=== PATIENT | male | born 1950 | race Caucasian/White ===

== ENCOUNTER → 2016-10-21 | Outpatient (CLI) | payer OTHER ==
--- NOTE | 2016-10-21 10:27 | KCIC ---
PROCEDURE CT scan of the chest without contrast 10/21/2016 HISTORY 45 to 50 year smoking history. Cough. TECHNIQUE Unenhanced contiguous, 5 millimeter axial sections were obtained through the chest and upper abdomen. One or more of the following individualized dose reduction techniques were utilized for this study: 1. Automated exposure control. 2. Adjustment of the mA and/or kV according to patient size. 3. Use of iterative reconstruction technique. FINDINGS Mild atherosclerotic plaque formation is seen involving the thoracic aorta. The thoracic aorta is minimally tortuous but tapers normally. The heart is borderline enlarged. Prominent likely reactive mediastinal lymph nodes are seen which measure 1 to 1.9 centimeters in size. Prominent likely reactive axillary lymph nodes are seen bilaterally. These measure 1 to 2 centimeters in size. No acute pulmonary infiltrate is seen. No pulmonary mass is noted. No pleural effusion or pneumothorax is seen. Small area of subsegmental atelectasis and/or scarring is seen involving the inferior lingula and right middle lobe. Two 3 millimeter nodular opacities are seen within the right middle lobe (image number 33 and image number 37). Their CT appearance is nonspecific. No additional pulmonary nodule is seen. Images through the upper abdomen are within normal limits. Degenerative changes are seen involving the thoracic spine. IMPRESSION Two 3 millimeter nodular opacities are seen involving the right middle lobe. A repeat CT scan of the chest in 12 months is recommended to document their stability. No acute abnormality is seen. Electronically signed by: Faraz Lind MD (Oct 21, 2016 10:25:48)
== END | disposition home or self-care (01) ==
LOC: KCIC CT 08:40
PROVIDERS: ATTEND Nurse Practitioner Family
DX: Z87.891 Personal history of nicotine dependence (principal); R05 Cough
CPT/HCPCS: 71250

== ENCOUNTER → 2017-10-22 | Outpatient (CLI) | payer OTHER | END | disposition home or self-care (01) | LOC: KCIC CT 09:50 | DX: Z12.2 Encounter for screening for malignant neoplasm of respiratory organs (principal); J43.9 Emphysema, unspecified; M47.894 Other spondylosis, thoracic region; F17.200 Nicotine dependence, unspecified, uncomplicated; E11.9 Type 2 diabetes mellitus without complications | CPT/HCPCS: 71250 ==

== ENCOUNTER → 2019-06-03 | Outpatient (CLI) | payer OTHER ==
[~2019-06-03] MED LIST: ASPI-612 PO; ATOR20TA PO; DOXY100C14 PO; LISI-338 PO; MELO15TA23 PO; METF500T11 PO; RIVA10TA PO; TICA90TA PO; freestyle libre TOP
--- NOTE | 2019-06-03 12:03 | KCIC ---
EXAM: CT Chest without IV contrast CLINICAL HISTORY: Lung nodule follow-up COMPARISON: 10/22/2017, 10/21/2016 TECHNIQUE: CT of the chest without intravenous contrast. Axial, coronal and sagittal reformatted images were generated. ---PQRS compliance statement - One or more of the following individualized dose reduction techniques were utilized for this study: 1. Automated exposure control 2. Adjustment of the mA and/or kV according to patient size 3. Use of iterative reconstruction technique--- FINDINGS: Lack of intravenous contrast limits evaluation of solid organs, vasculature, and lymph nodes. Chest: Heart is mildly enlarged. No pericardial effusion. No pleural effusion or pneumothorax. Within the constraints of this noncontrast exam, no mediastinal, hilar or axillary lymphadenopathy. A few mildly prominent axillary and mediastinal lymph nodes measure <1 cm short axis. Right thyroid nodule is stable. Central airways are grossly patent. 3 mm middle lobe lung nodule (series 6 image 109) is stable. 3 mm middle lobe lung nodule (series 6 image 124) is also stable. Mild background of emphysematous change. No pleural effusion or pneumothorax. Visualized Upper abdomen: High density material dependently within the gallbladder likely sludge. Moderate colonic stool content is seen. Bones: Osseous structures are grossly unremarkable. IMPRESSION: 1. Middle lobe lung nodules measure approximately 3 mm, stable to at least October 21, 2016. Given two-year stability, no further follow-up of these lung nodules is indicated. 2. Thyroid nodules are again seen, stable. 3. Mild background of emphysematous change. Electronically signed by: Feliberto Nettles MD (06/03/2019 12:00 PM) [facility]
== END | disposition home or self-care (01) ==
LOC: KCIC CT 09:30
PROVIDERS: ATTEND Nurse Practitioner Family
DX: E04.2 Nontoxic multinodular goiter (principal); J43.9 Emphysema, unspecified; R91.8 Other nonspecific abnormal finding of lung field
CPT/HCPCS: 71250

== ENCOUNTER → 2019-06-03 | Outpatient (CLI) | payer OTHER ==
--- NOTE | 2019-06-03 15:08 | KCIC ---
STUDY: MRI of the right foot without contrast INDICATION: Ulcer. Concern for infection at the first MTP joint. COMPARISON: None. TECHNIQUE: Multiplanar MR imaging of the right foot performed without the use of intravenous contrast. FINDINGS: Bones: Hallux valgus configuration. Advanced degenerative changes at the great toe MTP joint to include the medial hallux sesamoid with subchondral cystic change with surrounding marrow edema. Also noted are some marginal erosions along the medial aspect of the first metatarsal head. Less pronounced degenerative changes at the second MTP joint. First TMT arthrosis as well as partially visualized arthrosis at the naviculocuneiform joint with prominent cystic change at the central to medial aspect of the navicular, image 11 series 5. No acute fracture. Scattered flexion deformities of the toes. Musculotendinous: No acute tendinous injury. Musculature bulk and signal is relatively normal. Ligaments: No findings of acute injury to the great toe or lesser MTP capsuloligamentous structures. The Lisfranc ligament complex appears intact. Miscellaneous: There is a superficial wound located along the medial aspect of the first metatarsal head without subjacent fluid collection or visualized sinus tract. Nonspecific soft tissue edema-like signal most notable along the dorsum of the foot at the level of the MTP joints as well as extending along the great toe proximal phalanx. IMPRESSION: 1. Apparent shallow ulceration located medial to the first metatarsal head. No subjacent fluid collection or sinus tract is well seen. 2. Advanced arthrosis at the great toe MTP joint in the setting of hallux valgus alignment. Cystic changes involving the metatarsal head as well as the medial sesamoid with surrounding edema however there is no confluent T1 signal loss in this region to suggest superimposed osteomyelitis. Some marginal erosions at the medial first metatarsal head may be degenerative or could represent superimposed gout. 3. Scattered degenerative changes elsewhere such as at the first TMT, naviculocuneiform and second MTP joints. Electronically signed by: AIDE SHANKS MD (06/03/2019 3:05 PM) [facility]
== END | disposition home or self-care (01) ==
LOC: KCIC MRI 09:17
PROVIDERS: ATTEND Nurse Practitioner Family
DX: E11.621 Type 2 diabetes mellitus with foot ulcer (principal); L97.516 Non-pressure chronic ulcer of other part of right foot with bone involvement without evidence of necrosis; M19.071 Primary osteoarthritis, right ankle and foot; M20.11 Hallux valgus (acquired), right foot; M85.871 Other specified disorders of bone density and structure, right ankle and foot
CPT/HCPCS: 73718

== ENCOUNTER → 2019-06-08 | Outpatient (CLI) | payer OTHER | END | disposition home or self-care (01) | LOC: SPEC 17:19 | PROVIDERS: ATTEND Podiatrist | DX: E11.621 Type 2 diabetes mellitus with foot ulcer (principal); E11.51 Type 2 diabetes mellitus with diabetic peripheral angiopathy without gangrene; E11.40 Type 2 diabetes mellitus with diabetic neuropathy, unspecified; M79.671 Pain in right foot; Z79.899 Other long term (current) drug therapy | CPT/HCPCS: 87071; 87075 ==

== ENCOUNTER 2019-07-04 08:36 | Observation (INO) | payer OTHER ==
[~2019-07-04] VITALS: Ht 167.6 cm; Wt 79.2 kg
[2019-07-04] VITALS (11 sets, daily range): BP systolic 105–147; BP diastolic 59–96
[~2019-07-04 08:36] MED LIST changes: -ASPI-612 PO; -ATOR20TA PO; -DOXY100C14 PO; +HEPARIN for ARTERIAL LINE 1,500 ML ONE; +IODIXANOL 320 MG/ML 100 ML VIAL. ONE; +LIDOCAINE 1% Multi-Dose 20 ML VIAL. ONE; -LISI-338 PO; -MELO15TA23 PO; -METF500T11 PO; -RIVA10TA PO; -TICA90TA PO; -freestyle libre TOP
[2019-07-04] MEDS ORDERED: MIDAZOLAM HCL/PF 2 MG/2 ML VIAL. ONE ×2 (08:47→11:20)
[2019-07-04] MEDS ORDERED: fentaNYL PF VIAL 100 MCG/2 ML VIAL ONE ×2 (08:47→11:20)
[2019-07-04] MEDS ORDERED: LISI-338 PO (08:50)
[2019-07-04] MEDS ORDERED: MELO15TA23 PO (08:50)
[2019-07-04] MEDS ORDERED: DOXY100C14 PO (08:50)
[2019-07-04] MEDS ORDERED: METF500T11 PO ×2 (08:50)
[2019-07-04] MEDS ORDERED: ATOR20TA PO (08:50)
[2019-07-04] MEDS ORDERED: freestyle libre TOP (08:50)
[2019-07-04 09:16] LABS: HEMOGLOBIN 15.8 g/dL (13.0-17.5); RED BLOOD COUNT 5.16 x10^6/uL (4.30-5.70); RED CELL DISTRIBUTION WIDTH 14.3 % (11.5-14.5); WHITE BLOOD COUNT 10.1 x10^3/uL (4.0-11.0)
[2019-07-04 09:22] LABS: CALCIUM 11.2 mg/dL (8.5-10.1); CREATININE 0.7 mg/dL (0.7-1.3); GFR 111.5; POTASSIUM 4.6 mmol/L (3.5-5.1)
[2019-07-04 09:26] LABS: PROTHROMBIN TIME PATIENT 11.8 SEC (11.7-14.0)
[2019-07-04] MEDS ORDERED: MIDAZOLAM HCL/PF 2 MG/2 ML VIAL. IV ONE (11:00)
[2019-07-04] MEDS ORDERED: fentaNYL PF VIAL 100 MCG/2 ML VIAL IV ONE (11:00)
[2019-07-04] MEDS ORDERED: LIDOCAINE 1% Multi-Dose 20 ML VIAL. INJ ONE (11:00)
[2019-07-04] MEDS ORDERED: IODIXANOL 320 MG/ML 100 ML VIAL. IART ONE (11:00)
[2019-07-04] MEDS ORDERED: HEPARIN for IV BOLUS 10,000 UNIT/10 ML VIAL. ONE ×2 (11:05→13:22)
[2019-07-04] MEDS ORDERED: HEPARIN for IV BOLUS 10,000 UNIT/10 ML VIAL. IV ONE (11:15)
[2019-07-04] MEDS ORDERED: VERAPAMIL 5 MG/2 ML VIAL. ONE (11:20)
[2019-07-04] MEDS ORDERED: NITROGLYCERIN 200 MCG/2 ML SYRINGE FOR CATH/VASC LAB. ONE ×2 (11:20→15:00)
[2019-07-04] MEDS ORDERED: HEPARIN for IV BOLUS 10,000 UNIT/10 ML VIAL. IART ONE (11:30)
[2019-07-04] MEDS ORDERED: VERAPAMIL 5 MG/2 ML VIAL. IART ONE (11:30)
[2019-07-04] MEDS ORDERED: NITROGLYCERIN 200 MCG/2 ML SYRINGE FOR CATH/VASC LAB. IART ONE ×2 (11:30→14:15)
[2019-07-04] MEDS ORDERED: IV NORMAL SALINE 500ML BAG 500 ML IV ONE (12:00)
[2019-07-04] MEDS ORDERED: IODIXANOL 320 MG/ML 100 ML VIAL. ONE (13:40)
[2019-07-04] MEDS ORDERED: VANCOMYCIN 1GM IVPB FOR OMNI 250 ML IV ONE ×2 (13:45→14:15)
[2019-07-04] MEDS ORDERED: VANCOMYCIN 1 GM in IV NORMAL SALINE 250ML 250 ML IV ONE (14:15)
[2019-07-04] MEDS ORDERED: VANCOMYCIN 1GM IVPB FOR OMNI 250 ML ONE (14:15)
[2019-07-04] MEDS ORDERED: TICAGRELOR 90 MG TABLET. PO ONE (14:30)
[2019-07-04] MEDS ORDERED: ASPIRIN 325 MG TABLET PO ONE (14:30)
[2019-07-04] MEDS ORDERED: ASPIRIN 325 MG TABLET ONE (14:33)
[2019-07-04] MEDS ORDERED: TICAGRELOR 90 MG TABLET. ONE (14:33)
[2019-07-04] MEDS: INSULIN LISPRO 300 UNITS/3 ML VIAL. SQ SCH (17:00)
[2019-07-04] MEDS ORDERED: IV DEXTROSE 5% 250 ML BAG. IV PRN (17:00)
[2019-07-04] MEDS ORDERED: DEXTROSE 50% 25 GM / 50ML DISP.SYRIN. IV PRN (17:00)
[2019-07-04] MEDS: LISINOPRIL 5 MG TABLET. PO SCH (17:26)
--- NOTE | 2019-07-04 18:07 | CARD ---
MR#: [id number] Date of Study: 07/04/2019 Ordering Physician: NIKITA MANE, Referring Physician: NIKITA MANE, Tech: Radha Mendez RT (R) APPROVED REPORT Patient StatusIN-PATIENT Show Card Letterer: Radha Mendez RT (R) Procedure(s) performed: MODERATE SEDATION 205 MINUTES CONTRAST 208 CC'S VISIPAQUE FLUORO TIME 53.7 MINUTES DOSE 418.21 Gycm2 Abdominal aortogram with bilateral ileofemoral run-off Complex PVI and stenting of the R SFA via combined antegrade and retrograde approaches. HISTORY The patient is a 68 year-old male with a history of : tobacco history() , hypertension, dyslipidemia. INDICATION FOR PROCEDURE The indication(s) include : Rest pain: Right lower extremity. PROCEDURE NARRATIVE After appropriate informed consent, the patient was brought to the soap slabber and placed in the supine position. Preprocedural timeout was completed and confirmed the right patient and procedure. The bila teral groins were prepped and draped in usual sterile fashion. Moderate sedation acheived with Fentan yl and Versed. The patient received Heparin for anticoagulation. Access: Under lidocaine local anesthesia, a 5Fr introducer sheath was placed in the LCFA via the shawn fied seldinger technique with a J-tipped guidewire and an 18g needle. Diagnostic angiography was then performed using a 5Fr Omniflush catheter with digital subtraction angiography. Next, the contralater al (RCFA) was accessed with the aid of the crossover catheter and a J-tipped guidewire. The crossover was then exchanged for a long angled glide catheter which was then placed in the RCFA. Repeat right lower extremity with DSA was performed. 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 RENAL arteries: Single right and left renal arteries were identified without significant disease. RCIA: No significant disease. REIA: Mild to moderate 40-50% stenosis. RIIA: Ostial/proximal 50% stenosis. RCFA: No significant disease. RSFA: There is a flush ostial occlusion. The vessel reconstitutes at the level of the adductor canal and has a 70% stenosis. RPOP: No significant disease. RTP trunk: No significant disease. RAT: Mild diffuse irregularities. RPER: Moderate diffuse disease. RPT: No significant disease. LCIA: Mild diffuse irregularities of upto 20%. JAN: No significant disease. LIIA: Has an ostial/proximal 50% stenosis. LCFA: No significant disease. LSFA: No significant disease. LPOP: No significant disease. LAT: No significant disease. LTP trunk: No significant disease. INTERVENTIONAL TECHNIQUE: PVI OF THE RSFA The case was discussed with the wound care service (Dr. Lizama). After discussion, it was felt that significant healing issues were persistent and therefore decision was made to recanalize the SFA PASTING MACHINE OFFBEARER despite robust collateral flow from the profunda. Heparin was used for anticoagulation. The left-sided 5 Norwegian sheath was exchanged for a 6 Norwegian [employer] k sheath and this was placed in the right common femoral artery. Subsequently via ultrasound guidance a 5/6 Norwegian slender sheath was placed in the right anterior tibial artery. Due to the flush ostial occlusion of the SFA and lack of any clear evidence of a stump decision was made to pursue a retrogra de approach via the pedal access. There was significant difficulty and complexity to the procedure du e to heavy calcification at the proximal and distal. A 0.018'' Connect 250 T and 0.018 inch Glidewire advantage was used to traverse the distal cap most of the body of the occluded segment. Subsequent o nly, the proximal Was crossed in a subintimal fashion and despite multiple manipulations and wires us ing a 0.035 inch Glidewire, 0.018 inch Glidewire advantage and a command ST and 250 T wires, the prox imal At the level of the right common femoral artery was unable to be crossed any true lumen fashion. A 3.0 x 20 mm balloon was used to angioplasty from a retrograde fashion. Ultimately, a Navicross cat heter and an Astato 20 wire were used to pucture the proximal cap. True lumen placement was confirmed . Subsequent only, the right SFA occlusion was angioplastied with a 3.0 x 200 mm balloon, a 5.0 x 200 mm balloon and a 5.5 x 80 mm balloon at nominal pressures. Angiography demonstrated excellent runoff to the foot with persistent dissection at the level of the ostium of the SFA. The decision was then made to place a 5.5 x 60 mm Supera self expanding stent in the ostium of the SFA and proximal SFA. An giography demonstrated excellent stent expansion without any evidence of compromise of flow to the pr ofunda. The stent was then postdilated with the 5.5 mm balloon at 10 cely. Final angiography revealed excellent distal runoff without any evidence of residual dissection. At case completion, the left sided sheath was removed and an angioseal was used for hemostasis. The r ight pedal sheath was removed and a terumo band was applied for hemostasis. No acute complications. Conclusion 1. Gary category 5 lower extremity peripheral arterial disease 2. Successful complex PASTING MACHINE OFFBEARER recanalization and stenting of the right SFA via antegrade and retrograde a pproaches Recommendations 1. Aspirin 81 mg daily, ticagrelor 90 mg twice a day and Xarelto 2.5 mg daily for 30 days and then tr ansition to ASA 81 mg daily 2. Continue aggressive wound care management 3. Repeat duplex ultrasound in for 6 weeks Signed by : Nikita Mane, Electronically Approved : 07/04/2019 18:07:09
[2019-07-04] MEDS: TICAGRELOR 90 MG TABLET. PO SCH (20:33)
[2019-07-04] MEDS: DOXYCYCLINE HYCLATE 100 MG TABLET PO SCH (20:33)
[2019-07-04] MEDS ORDERED: ATORVASTATIN CALCIUM 20 MG TABLET PO SCH (21:00)
[2019-07-04] MEDS ORDERED: [UNRECOGNIZED DRUG - OTHER] TOP SCH (21:00)
[2019-07-05 03:15] VITALS: BP 116/62
[2019-07-05 07:00] VITALS: BP 136/77
[2019-07-05] MEDS: INSULIN LISPRO 300 UNITS/3 ML VIAL. SQ SCH (08:00)
[2019-07-05] MEDS ORDERED: MELOXICAM 7.5 MG TABLET PO SCH (09:00)
[2019-07-05] MEDS: TICAGRELOR 90 MG TABLET. PO SCH (09:16)
[2019-07-05] MEDS: LISINOPRIL 5 MG TABLET. PO SCH (09:16)
[2019-07-05] MEDS: DOXYCYCLINE HYCLATE 100 MG TABLET PO SCH (09:19)
[2019-07-05] MEDS ORDERED: ASPIRIN ENTERIC COATED 81 MG TABLET.DR. PO SCH (10:45)
[2019-07-05 11:00] VITALS: BP 151/72
--- NOTE | 2019-07-05 11:24 | NUR ---
SS following for discharge planning. SS reviewed pt chart. Pt is from home with spouse and is currently on room air. No discharge needs noted at this time. SS will continue to follow for discharge planning.
[2019-07-05] MEDS ORDERED: RIVA10TA PO (12:38)
[2019-07-05] MEDS ORDERED: TICA90TA PO (12:38)
[2019-07-05] MEDS ORDERED: ASPI-612 PO (12:39)
--- NOTE | 2019-07-05 12:42 | PDOC3 ---
ASHLEIGH ORTEGA MOBILE APPLICATION DEVELOPER 07/05/19 1242: Discharge Summary Visit Information Date of Admission: Jul 04, 2019 Date of Discharge: Jul 05, 2019 Admitting Diagnosis: Severe RLE PAD, nonhealing right foot ulcer, DM2 Final Diagnosis Severe RLE PAD, nonhealing right foot ulcer, DM2 Brief Hospital Course Allergies Allergies Coded Allergies Type Severity Reaction Last Updated Verified No Known Drug Allergies 07/04/19 No Vital Signs Vital Signs Date Time Temp Pulse Resp B/P (MAP) Pulse Ox O2 Delivery O2 Flow Rate FiO2 07/05/19 11:00 97.9 79 16 151/72 (98) 98 Room Air 97.9 07/04/19 20:00 2.0 Lab Results Laboratory Tests Test 07/04/19 08:56 07/04/19 11:44 07/04/19 12:24 07/04/19 13:03 White Blood Count 10.1 x10^3/uL (4.0-11.0) Red Blood Count 5.16 x10^6/uL (4.30-5.70) Hemoglobin 15.8 g/dL (13.0-17.5) Hematocrit 46.0 % (39.0-53.0) Mean Corpuscular Volume 89 fL (79-100) Mean Corpuscular Hemoglobin 31 pg (25-35) Mean Corpuscular Hemoglobin Concent 34 g/dL (31-37) Red Cell Distribution Width 14.3 % (11.5-14.5) Platelet Count 213 x10^3/uL (140-400) Prothrombin Time 11.8 SEC (11.7-14.0) Prothromb Time International Ratio 0.9 (0.8-1.1) Sodium Level 136 mmol/L (136-145) Potassium Level 4.6 mmol/L (3.5-5.1) Chloride Level 99 mmol/L (98-107) Carbon Dioxide Level 28 mmol/L (21-32) Anion Gap 9 (6-14) Blood Urea Nitrogen 12 mg/dL (8-26) Creatinine 0.7 mg/dL (0.7-1.3) Estimated GFR (Cockcroft-Gault) 111.5 Glucose Level 136 mg/dL (70-99) Calcium Level 11.2 mg/dL (8.5-10.1) Activated Clotting Time 267 sec (92-181) 231 sec (92-181) 215 sec (92-181) Test 07/04/19 13:57 Activated Clotting Time 235 sec (92-181) Laboratory Tests Test 07/04/19 13:03 07/04/19 13:57 Activated Clotting Time 215 sec (92-181) 235 sec (92-181) Brief Hospital Course Mr Damon is a 68 yo male admitted for planned abdominal aortogram with bilateral ileofemoral run-off due to claudication symptoms and nonhealing ulcer to right first metatarsal region on the medial side. Upon imaging and he was noted with severe RLE PAD with roshni category 5. Successful complex MEDICAL SPECIALIST recanalization and stenting of the R SFA via combined antegrade and retrograde approaches were performed. Left groin arteriotomy site intact with no erythema or swelling. Right pedal arteriotomy site intact with no swelling or erythema. Neurovascular status to RLE intact. Right medial first metatarsal ulcer was noted with no eschar or significant purulence and cellulitis was noted. This was covered with dressing. Continue outpt wound care and podiatry treatment with continued use of post op shoe. VSS, AOx3, LSCTA, no arrhythmias overnight. Discussed smoking cessation and increasing exercise regimen. He is to start aspirin 81 mg daily, ticagrelor 90 mg twice a day and Xarelto 2.5 mg daily for 30 days (Rx given) and then transition to ASA 81 mg daily. Repeat duplex ul trasound in for 6 weeks. Follow up in office as scheduled. Continue with preop home regimen including DM regimen with metformin to restart tomorrow. Post procedural home instructions discussed. Discharge Information Condition at Discharge: Stable Follow Up: Weeks (8) Disposition/Orders: D/C to Home Scheduled Aspirin (Aspirin Ec) 81 Mg Tablet.dr, 1 TAB PO DAILY for PAD for 30 Days, #30 Ref 3 Prescribed by: ASHLEIGH ORTEGA on 07/05/19 1239 Atorvastatin Calcium (Lipitor) 20 Mg Tablet, 20 MG PO HS for FOR CHOLESTEROL, #30 Ref 0 (Reported) Entered as Reported by: LITA MENSAH on 07/04/19 0850 Last Action: Continued on 07/04/19 1614 by CLAUDY MORA Doxycycline Monohydrate (Doxycycline Monohydrate) 100 Mg Capsule, 1 CAP PO BID for rx, #28 (Reported) Entered as Reported by: LITA MENSAH on 07/04/19849 Last Action: Converted on 07/04/191613 by CLAUDY MORA Lisinopril (Lisinopril) 5 Mg Tablet, 1 TAB PO DAILY for rx, #30 Ref 5 (Reported) Entered as Reported by: LITA MENSAH on 07/04/19849 Last Action: Continued on 07/04/191613 by CLAUDY MORA Metformin Hcl (Metformin Hcl Er) 500 Mg Tab.er.24h, 1,000 MG PO DAILYWBKFT for ANTI-DIABETIC, Ref 0 (Reported) Entered as Reported by: LITA MENSAH on 07/04/19849 Last Action: New Order on 07/04/19849 by LITA MENSAH Metformin Hcl (Metformin Hcl Er) 500 Mg Tab.er.24h, 500 MG PO DAILYBFRSUP for rx, (Reported) Entered as Reported by: LITA MENSAH on 07/04/19849 Last Action: New Order on 07/04/19849 by LITA MENSAH Rivaroxaban (Xarelto) 10 Mg Tablet, 2.5 MG PO DAILYWSUP for PAD for 30 Days, #8 Prescribed by: ASHLEIGH ORTEGA on 07/05/19 1238 Ticagrelor (Brilinta) 90 Mg Tablet, 90 MG PO BID for PAD for 30 Days, #60 Prescribed by: ASHLEIGH ORTEGA on 07/05/19 1238 [freestyle esequiel] , 1 EA TOP BID, (Reported) Entered as Reported by: LITA MENSAH on 07/04/19849 Last Action: Converted on 07/04/191613 by CLAUDY MORA Discontinued Medications Meloxicam (Meloxicam) 15 Mg Tablet, 1 TAB PO DAILY for rx, #30 Ref 2 (Reported) Entered as Reported by: LITA MENSAH on 07/04/19849 Last Action: Converted on 07/04/191613 by CLAUDY MORA Patient Instructions Patient Instructions GENERAL INSTRUCTIONS: 1. Your dressing should be removed prior to leaving the hospital. 2. It is OK to shower the day after your procedure. 3. If you received stents, be sure to carry your stent information card with you in your wallet/purse at all times. 4. Call the office immediately at [phone] if you notice any fever or if there is redness, worsening tenderness/pain, increased bruising, or drainage from the puncture site. 5. Should you have bleeding from the site, lie down immediately & put pressure on the site. The pressure should be hard enough to stop the bleeding. Have the nearest person call 911. DO NOT try to drive to the ER with ac tive bleeding. 6. If you notice a change in color, coolness to touch, or loss of feeling in the affected extremity, come to the emergency room. Please have someone drive you or call 911 if no one is available. DO NOT drive yourself. 7. If you normally take glucophage (metformin), please do not take this medicine for 48 hours following your procedure. 8. DO NOT STOP TAKING YOUR PLAVIX OR ASPIRIN UNLESS IT IS CLEARED BY A DOLLY DRIVER OF YOUR BUILDING INSULATION INSTALLER AT OUR OFFICE. 9. QUIT SMOKING: the [place] [employer], [place] [employer], & [employer] have cessation resources available on their websites 10. Please have someone available to drive you home from the hospital as you may be limited by sedation medications given during the procedure. Femoral (Groin) access: 1. Do no lifting, pushing, pulling, bending, stooping, or recurrent stair climbing for 3 days following your procedure. 2. Once past the first 3 days, do not do any HEAVY exertion or lifting for one week following the procedure. No gym workouts, running, lifting greater than a gallon of milk, etc 3. Do not submerge in bath or pool for one week. OK to drive 3 days following your procedure, but if going long distance, do not go alone & take hourly breaks to get out of car and walk around. Call the office at [phone] for any questions or concerns. NIKITA MANE MD 07/06/19 1153: Discharge Summary Brief Hospital Course Brief Hospital Course Pt. seen and examined. Agree with above MACHINE OPERATOR HAY STACKER note. Late entry for 07/05/2019 Will f/u in the office in 3-4 months. Repeat duplex in 4-6 weeks. Thanks Discussed with wound care ASHLEIGH ORTEGA APRN Jul 05, 2019 12:42 NIKITA MANE MD Jul 06, 2019 11:53
--- NOTE | 2019-07-05 13:45 | NUR ---
Discharge Note: KIMI CARR Discharge instructions and discharge home medications reviewed with Patient and a copy given. All questions have been answered and understanding verbalized.
--- NOTE | 2019-07-05 14:20 | NUR ---
Wound Care Attempted to see pt for wound care consult, known to WC from outpt wound clinic. Pt has already been discharged, will f/u with pt in clinic.
[2019-07-05] MEDS ORDERED: RIVAROXABAN 10 MG TABLET. PO SCH (17:00)
[2019-07-05] MEDS ORDERED: LACTOBACILLUS RHAMNOSUS GG 1 CAPSULE. PO SCH (21:00)
== END 2019-07-05 13:45 | disposition home or self-care (01) ==
LOC: CCL 08:36 → INTOOBSV 12:21 → 2 NORTH 12:21
PROVIDERS: ADMIT Internal Medicine Cardiovascular Disease; ATTEND Internal Medicine Cardiovascular Disease
DX: E11.51 Type 2 diabetes mellitus with diabetic peripheral angiopathy without gangrene (principal); E11.621 Type 2 diabetes mellitus with foot ulcer; F17.200 Nicotine dependence, unspecified, uncomplicated; L97.519 Non-pressure chronic ulcer of other part of right foot with unspecified severity; Z79.01 Long term (current) use of anticoagulants; Z79.02 Long term (current) use of antithrombotics/antiplatelets; Z79.82 Long term (current) use of aspirin
CPT/HCPCS: 36415; 37226; 75625; 75716; 76937; 80048; 85027; 85347; 85610; 96365; 96375; C1760; C1769; C1892; C1894; G0378; G0379; J1644; J1815; J2250; J3010; J3370; J3490; J7040; J7050; Q9967; 99152; 99153; C1771; J7030

== ENCOUNTER 2019-09-06 12:24 | Inpatient (IN) | payer OTHER, MEDICARE ==
[~2019-09-06] VITALS: Ht 167.6 cm; Wt 80.4 kg
[~2019-09-06 12:24] MED LIST changes: +ASPI-612 PO; +ATOR20TA PO; +DOXY100C14 PO; -HEPARIN for ARTERIAL LINE 1,500 ML ONE; -IODIXANOL 320 MG/ML 100 ML VIAL. ONE; -LIDOCAINE 1% Multi-Dose 20 ML VIAL. ONE; +LISI-338 PO; +MELO15TA23 PO; +METF500T11 PO; +RIVA10TA PO; +TICA90TA PO; +freestyle libre TOP
[2019-09-06 13:30] VITALS: BP 132/71
[2019-09-06] MEDS: LISINOPRIL 5 MG TABLET. PO SCH (13:56)
[2019-09-06] MEDS ORDERED: ASPIRIN ENTERIC COATED 81 MG TABLET.DR. PO SCH (14:00)
--- NOTE | 2019-09-06 14:37 | HP ---
ADMIT DATE: 09/06/2019 CHIEF COMPLAINT: Right diabetic foot lesion. 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 He developed a right bunion toe infection. At the greater toe, he states he got bit by some mosquito that was there and that seemed to start the infection. He presented to [facility] today. They called me and explained the patient's wounds are just getting too bad, seems to be progressing. He does have associated pain. We are going to admit the patient and consult Infectious Disease and Vascular Surgery. The patient is being examined on the medical floor, room #444. PAST MEDICAL HISTORY: Diabetes, hypertension, hyperlipidemia, and diabetic foot disease. ALLERGIES: None. FAMILY HISTORY: Hypertension and diabetes. 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 He is . He does not drink, smoke or take drugs. MEDICATIONS: Reviewed, please refer to the MRAD. He is on lisinopril. He was on nystatin. REVIEW OF SYSTEMS: GENERAL: No history of weight change, weakness or fevers. SKIN: No bruising, hair changes or rashes. EYES: No blurred, double or loss of vision. NOSE AND THROAT: No history of nosebleeds, hoarseness or sore throat. HEART: No history of palpitations, chest pain or shortness of breath on exertion. LUNGS: Denies cough, hemoptysis, wheezing or shortness of breath. GASTROINTESTINAL: Denies changes in appetite, nausea, vomiting, diarrhea or constipation. GENITOURINARY: No history of frequency, urgency, hesitancy or nocturia. NEUROLOGIC: Denies history of numbness, tingling, tremor or weakness. PSYCHIATRIC: No history of panic, anxiety or depression. ENDOCRINE: No history of heat or cold intolerance, polyuria or polydipsia. EXTREMITIES: He complains of right toe pain. PHYSICAL EXAMINATION: VITALS: Within normal limits and are stable. GENERAL: No apparent distress. Alert and oriented. HEENT: Head is normocephalic, atraumatic, pupils were equally round and reactive to light and accommodation. NECK: Supple, no JVD, no thyromegaly was noted. LUNGS: Clear to auscultation in all lung sandoval without rhonchi or wheezing. HEART: RRR, S1, S2 present. Peripheral pulses intact, no obvious murmurs were noted. ABDOMEN: Soft, nontender. Positive bowel sounds no organomegaly, normal bowel sounds. EXTREMITIES: The right toe has a large diabetic foot ulcer, right at the head of the first metatarsal. NEUROLOGIC: Normal speech, normal tone. A & O x3, moves all extremities, no obvious focal deficits. PSYCHIATRIC: Normal affect, normal mood. Stable. SKIN: No ulcerations or rashes, good skin turgor, no jaundice. VASCULAR: Good capillary refill, neurovascular bundle appears to be intact. LABORATORY DATA: Pending. ASSESSMENT AND PLAN: Diabetic foot ulcer. The patient has been admitted. We will consult Vascular Surgery, consult Infectious Disease. I ordered IV vancomycin, IV Zosyn. Resume home meds, frequent labs, physical therapy, occupational therapy, deep venous thrombosis prophylaxis. Full code. UZMA MCKEON DO DR: RAIMUNDO/jory JOB#: [id number] / [id number]
[2019-09-06 15:00] VITALS: BP 139/80
[2019-09-06] MEDS ORDERED: PIPERACILLIN/TAZOBACTAM 4.5 GM in IV NORMAL SALINE 100ML 100 ML IV ONE (15:15)
[2019-09-06] MEDS ORDERED: PIP/TAZO PER PHARMACY MC PRN (15:15)
[2019-09-06] MEDS ORDERED: VANCOMYCIN 2 GM in IV NORMAL SALINE 500ML BAG 500 ML IV ONE (15:45)
[2019-09-06 16:10] LABS: BASO # 0.1 x10^3/uL (0.0-0.2); BASO % 1 % (0-3); EOS # 0.1 x10^3/uL (0.0-0.7); EOS % 1 % (0-3); LYMPH # 1.6 x10^3/uL (1.0-4.8); LYMPH % 12 % (24-48); MEAN CORPUSCULAR HEMOGLOBIN 31 pg (25-35); MEAN CORPUSCULAR HGB CONC 34 g/dL (31-37); MEAN CORPUSCULAR VOLUME 90 fL (79-100); MONO # 1.4 x10^3/uL (0.0-1.1); MONO % 11 % (0-9); NEUT # 9.9 x10^3/uL (1.8-7.7); NEUT % 76 % (31-73); PLATELET COUNT 275 x10^3/uL (140-400); RED BLOOD COUNT 4.21 x10^6/uL (4.30-5.70); RED CELL DISTRIBUTION WIDTH 13.6 % (11.5-14.5)
--- NOTE | 2019-09-06 16:22 | PDOC2 ---
CONSULT Date of Consult Date of Consult DATE: 09/06/19 TIME: 16:16 Reason for Consult Reason for Consult: Mal perforans ulcer of the right first toe History of Present Illness Reason for Visit: This a very pleasant 68-year-old diabetic male who has been treating a right diabetic mal perforans ulcer of the medial first metatarsal for over 5 months. He did undergo revascularization of the right lower extremity with christianity of blood flow. Despite this, the toe has not gone on to heal. 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 He states that his diabetes is generally very well controlled with his last hemoglobin A1c less than 7. Past Medical History Cardiovascular: CAD, HTN Endocrine: Diabetes Family History Family History: Hypertension Social History No Drugs: None Current Medications Current Medications Current Medications Aspirin (Ecotrin) 81 mg DAILY08 PO ; Start 09/06/19 at 14:00 Lisinopril (Prinivil) 5 mg DAILY PO ; Start 09/06/19 at 14:00 Metformin HCl (Glucophage Xr) 1,000 mg DAILYWBKFT PO ; Start 09/07/19 at 08:00 Metformin HCl (Glucophage Xr) 500 mg DAILY16 PO ; Start 09/06/19 at 16:00 Piperacillin Sod/ Tazobactam Sod 4.5 gm/Sodium Chloride 100 ml @ 200 mls/hr ONCE ONCE IV Last administered on 09/06/19at 16:10; Start 09/06/19 at 15:15; Stop 09/06/19 at 15:44; Status DC Vancomycin HCl 2 gm/Sodium Chloride 500 ml @ 250 mls/hr ONCE ONCE IV ; Start 09/06/19 at 15:45; Stop 09/06/19 at 17:44 Vancomycin HCl (Vanco Per Pharmacy) 1 each PRN DAILY PRN MC SEE COMMENTS; Start 09/06/19 at 15:15 Piperacillin Sod/ Tazobactam Sod (Zosyn Per Pharmacy) 1 each PRN DAILY PRN MC SEE COMMENTS; Start 09/06/19 at 15:15 Acetaminophen (Tylenol) 650 mg PRN Q6HRS PRN PO pain; Start 09/06/19 at 15:45 Active Scripts Active Aspirin Ec (Aspirin) 81 Mg Tablet.dr 1 Tab PO DAILY 30 Days Brilinta (Ticagrelor) 90 Mg Tablet 90 Mg PO BID 30 Days Xarelto (Rivaroxaban) 10 Mg Tablet 2.5 Mg PO DAILYWSUP 30 Days Reported [zacarias iraheta] 1 Ea TOP BID Doxycycline Monohydrate 100 Mg Capsule 1 Cap PO BID Lipitor (Atorvastatin Calcium) 20 Mg Tablet 20 Mg PO HS Lisinopril 5 Mg Tablet 1 Tab PO DAILY Metformin Hcl Er (Metformin Hcl) 500 Mg Tab.er.24h 500 Mg PO DAILY16 patient states he takes one tab in the evening Metformin Hcl Er (Metformin Hcl) 500 Mg Tab.er.24h 1,000 Mg PO DAILYWBKFT patient states he takes two pills in the morning Allergies Allergies: Coded Allergies: No Known Drug Allergies (Unverified , 07/04/19) ROS Skin: Yes Rash, Yes Skin Lesion Changes Physical Exam General: Alert, Oriented X3, Cooperative, No acute distress HEENT: Atraumatic, EOMI, Mucous membr. moist/pink Lungs: Clear to auscultation, Normal air movement Heart: Regular rate, Normal S1, Normal S2 Abdomen: Normal bowel sounds, Soft, No tenderness, No masses Extremities: No clubbing, Other (palpable right lower extremity dorsalis pedis pulse, bilateral femoral pulses are intact ) Skin: Other (mal perforans ulcer which probes to the metatarsal bone in the right foot involving the first metatarsal, positive cellulitis extending from this point to the dorsum of the foot, no evidence of crepitance, no evidence of purulent drainage no malodor) Neuro: Strength at 5/5 X4 ext, Normal tone, Cranial nerves 3-12 NL, Other (diminished sensation to light touch bilaterally) Psych/Mental Status: Mental status NL, Mood NL Vitals VITALS Vital Signs Date Time Temp Pulse Resp B/P (MAP) Pulse Ox O2 Delivery O2 Flow Rate FiO2 09/06/19 13:30 98.5 103 18 132/71 (91) 97 Room Air 98.5 Labs Labs Laboratory Tests Test 09/06/19 15:45 White Blood Count 13.0 x10^3/uL (4.0-11.0) Red Blood Count 4.21 x10^6/uL (4.30-5.70) Hemoglobin 13.0 g/dL (13.0-17.5) Hematocrit 38.0 % (39.0-53.0) Mean Corpuscular Volume 90 fL (79-100) Mean Corpuscular Hemoglobin 31 pg (25-35) Mean Corpuscular Hemoglobin Concent 34 g/dL (31-37) Red Cell Distribution Width 13.6 % (11.5-14.5) Platelet Count 275 x10^3/uL (140-400) Neutrophils (%) (Auto) 76 % (31-73) Lymphocytes (%) (Auto) 12 % (24-48) Monocytes (%) (Auto) 11 % (0-9) Eosinophils (%) (Auto) 1 % (0-3) Basophils (%) (Auto) 1 % (0-3) Neutrophils # (Auto) 9.9 x10^3/uL (1.8-7.7) Lymphocytes # (Auto) 1.6 x10^3/uL (1.0-4.8) Monocytes # (Auto) 1.4 x10^3/uL (0.0-1.1) Eosinophils # (Auto) 0.1 x10^3/uL (0.0-0.7) Basophils # (Auto) 0.1 x10^3/uL (0.0-0.2) Laboratory Tests Test 09/06/19 15:45 White Blood Count 13.0 x10^3/uL (4.0-11.0) Red Blood Count 4.21 x10^6/uL (4.30-5.70) Hemoglobin 13.0 g/dL (13.0-17.5) Hematocrit 38.0 % (39.0-53.0) Mean Corpuscular Volume 90 fL (79-100) Mean Corpuscular Hemoglobin 31 pg (25-35) Mean Corpuscular Hemoglobin Concent 34 g/dL (31-37) Red Cell Distribution Width 13.6 % (11.5-14.5) Platelet Count 275 x10^3/uL (140-400) Neutrophils (%) (Auto) 76 % (31-73) Lymphocytes (%) (Auto) 12 % (24-48) Monocytes (%) (Auto) 11 % (0-9) Eosinophils (%) (Auto) 1 % (0-3) Basophils (%) (Auto) 1 % (0-3) Neutrophils # (Auto) 9.9 x10^3/uL (1.8-7.7) Lymphocytes # (Auto) 1.6 x10^3/uL (1.0-4.8) Monocytes # (Auto) 1.4 x10^3/uL (0.0-1.1) Eosinophils # (Auto) 0.1 x10^3/uL (0.0-0.7) Basophils # (Auto) 0.1 x10^3/uL (0.0-0.2) Assessment/Plan Assessment/Plan Osteomyelitis of the right first toe--the patient has a nonhealing diabetic foot ulcer for over 5 months. I suspect that this involves the joint or bone. The wound does probe to the bone. He has cellulitis tracking on the dorsum of the foot originating from the wound. He is artery started on broad-spectrum IV antibiotics. I will order an MRI of the right foot to evaluate for osteomyelitis. I believe there is a high likelihood for first toe amputation. I offered him this operation earlier than later but he is reluctant to proceed and would like to try the antibiotics and see what the MRI results show. Did make a clear that the longer we wait the more potential infection that can develop in the foot and potentially affect other toes or the foot itself. The patient has a palpable pulse into the right foot and therefore no arterial testing is necessary. Giovanna Allen DO, GIOVANNA CASTRO DO Sep 06, 2019 16:22
[2019-09-06 16:26] LABS: CREATININE 0.8 mg/dL (0.7-1.3); GFR 95.6
[2019-09-06 16:27] LABS: CALCIUM 10.1 mg/dL (8.5-10.1); CREATININE 0.8 mg/dL (0.7-1.3); GFR 95.6; POTASSIUM 3.6 mmol/L (3.5-5.1)
--- NOTE | 2019-09-06 16:37 | NUR ---
Wound Care: Pt seen today in outpatient clinic for routine wound care to R medial 1st metatarsal head DFU. He has been receiving treatment for this wound since 05/2019. Wound pictured and measured in clinic, bone noted to be exposed, as well as pt reports of increased pain and drainage, swelling, redness, and warmth. Dorsal Pedal pulse present to R foot. Dr. Lizama concerned about deterioration of wound, and new findings and recommended admission into the hospital for further workup and IV ABT. Wound dressed simply with iodoflex, ABD and kerlix in anticipation of ID and vascular consults removing dressing. Notified Mariela LAGUERRE of admission, and recommended consults and order for R arterial doppler study, per Dr. Lizmaa. Will check on physician noted on 09/07/19 to determine plan of care.
[2019-09-06] MEDS: ASPIRIN ENTERIC COATED 81 MG TABLET.DR. PO SCH (16:43)
[2019-09-06] MEDS: ACETAMINOPHEN 325 MG TABLET. PO PRN ×2 (16:43→22:46)
[2019-09-06] MEDS: metFORMIN XR 500 MG TAB.ER.24H PO SCH (16:43)
--- NOTE | 2019-09-06 17:23 | NUR ---
Patient arrived to the floor around 1300 as a direct admit from the [facility]. [facility] RN Maricel gave this nurse report and stated wound pictures and assessment were completed today in the wound clinic but they will follow up with the patient tonight as well. IV started in left wrist by SHADE Shin in preparation for IV antibiotics. Dressing to right foot dry/intact upon admit. Diabetic accucheck device on back of right arm. Blood sugar at dinner time 103. Patient is up ad candida with a walking boot. Order for doppler study given to this nurse by wound care but Dr Darren Allen noted that the pulse was present/strong so instead he wanted an MRI done. Doppler order discontinued and he placed MRI order, patient and family aware. Wound culture completed down at the wound clinic prior to admit. Will continue to monitor.
[2019-09-06 19:00] VITALS: BP 128/68
[2019-09-06] MEDS: VANCOMYCIN PER PHARMACY MC PRN (19:09)
--- NOTE | 2019-09-06 19:09 | NUR ---
Pharmacy Vancomycin Dosing Note S:Consulted to monitor and dose vancomycin started 09/06/19. O:BETTE CARR is a 68 year old M with Osteomyelitis . Height: 5 feet, 6 inches Weight: 79 kg Festus Body Weight: Adjusted Body Weight: Dosing Weight: Actual Other Antibiotics: ZOSYN LABS: Last BUN: Last Creatinine: 0.8 Creatinine Clearance: 68 mL/min Last WBC: 13 Last Procalcitonin: Tmax (past 24 hours): Microbiology: I/O: Drug Levels: Last level: on at Last dose given 09/06/19 at 1700 Vancomycin Dosing: Loading Dose: 2000 mg x1 Dosing Weight: Actual Target Trough: 15-20 A: Based on: WEIGHT AND RENAL FUNCTION, 2GM VANCOMYCIN IVBOLUS GIVEN, P: 1. Begin Vancomycin 1250 mg IV q12h 2. Follow up Trough level on 09/08/19 at 0430 3. Pharmacy will continue to monitor, follow and adjust therapy as needed. VASILIY KING [facility], 09/06/19 [id number]
[2019-09-06] MEDS: PIPERACILLIN/TAZOBACTAM 3.375 GM in IV NORMAL SALINE 50ML 50 ML IV SCH (22:17)
[2019-09-06 23:00] VITALS: BP 130/70
[2019-09-07 03:00] VITALS: BP 130/63
[2019-09-07] MEDS: PIPERACILLIN/TAZOBACTAM 3.375 GM in IV NORMAL SALINE 50ML 50 ML IV SCH ×4 (03:49→21:25)
[2019-09-07] MEDS: ACETAMINOPHEN 325 MG TABLET. PO PRN (05:39)
[2019-09-07] MEDS: VANCOMYCIN 1.25 GM in IV NORMAL SALINE 250ML 250 ML IV SCH ×2 (05:39→17:18)
[2019-09-07 07:00] VITALS: BP 119/64
[2019-09-07] MEDS: ASCORBIC ACID 500 MG TABLET PO SCH (08:31)
[2019-09-07] MEDS: MULTIVITAMIN with MINERAL TABLET. PO SCH (08:31)
[2019-09-07] MEDS: LISINOPRIL 5 MG TABLET. PO SCH (08:31)
[2019-09-07] MEDS: metFORMIN XR 500 MG TAB.ER.24H PO SCH ×2 (08:32→16:17)
[2019-09-07] MEDS: VANCOMYCIN PER PHARMACY MC PRN (09:42)
[2019-09-07] MEDS ORDERED: GADOTERATE 7.5 MMOL/15ML VIAL. IVP ONE (10:00)
--- NOTE | 2019-09-07 10:07 | PDOC ---
Provider Note Provider Note Vascular S: Patient awaiting MRI. O: Awake and alert VSS, afebrile HRR Non-labored respirations Right foot with dressing intact A/P: Osteomyelitis of the right first toe--the patient has a non-healing diabetic foot ulcer for over 5 months. We suspect that this involves the joint or bone, the wound probe to the bone. He has cellulitis tracking on the dorsum of the foot originating from the wound. MRI pending Continue local wound care. Continue antibiotics, ID consulted. Will make additional recommendations pending MRI results. JIM LOREDO APRN Sep 07, 2019 10:07
[2019-09-07 11:00] VITALS: BP 153/74
--- NOTE | 2019-09-07 11:36 | RAD ---
Examination: MRI of the right foot without and with IV contrast HISTORY: History of osteomyelitis first metatarsal TECHNIQUE: Multiplanar, multisequence MR imaging of the right foot were performed without and with IV contrast. IV contrast used was 16 ml Dotarem. COMPARISON: 06/03/2019 FINDINGS: There is diffuse decreased T1 signal with corresponding T2 signal and cortical disruption identified in the distal portion of the first metatarsal with small ulcer identified extending to the skin medial to the first metatarsal head. There is focal fluid collection identified lateral to the first metatarsophalangeal joint measuring 2 cm in AP dimension could be abscess. Moderate increased T2 signal with enhancement identified in the soft tissue surrounding the first, second, third metatarsals. There is mild increased T2 signal with enhancement identified in the midportion of the first metatarsal. Advanced osteoarthritis first MTP joint. Mild hallux valgus. Diffuse increased T2 signal identified in the forefoot likely secondary edema. IMPRESSION: 1. Findings consistent with osteomyelitis distal first metatarsal with cortical disruption. Small ulcer identified medial to the first metatarsal head with a 2 cm focal fluid collection probably abscess lateral to the first MTP joint. 2. Diffuse increased T2 signal with enhancement identified in the soft tissue in the medial forefoot likely soft tissue infection. There is increased T2 signal with enhancement identified in the midportion of the first metatarsal identified in the bone marrow reactive changes. 3. Diffuse increased T2 signal identified throughout the forefoot likely edema. Electronically signed by: Luis Guerra MD (09/07/2019 11:33 AM) [id number]
--- NOTE | 2019-09-07 11:59 | NUR ---
SW following for discharge planning. Discussed with RN, pt is from home with , currently on IV abx. SW will continue to follow for discharge planning needs.
--- NOTE | 2019-09-07 12:58 | PDOC ---
[facility] PROGRESS NOTE Chief Complaint Chief Complaint Diabetic foot ulcer Diabetes Hypertension Hyperlipidemia Diabetic foot disease History of Present Illness History of Present Illness 09/07 Pt seen and examined [facility] and consultants Pt considering amputation with evidence of osteomyelitis Pt undetermined whether that is what he wants Vitals/I&O Vitals/I&O: Vital Signs Date Time Temp Pulse Resp B/P (MAP) Pulse Ox O2 Delivery O2 Flow Rate FiO2 09/07/19 11:00 98.4 95 20 153/74 (100) 97 Room Air 98.4 I & O 09/06/19 09/06/19 09/07/19 15:00 23:00 07:00 Intake Total 250 ml 50 ml Balance 250 ml 50 ml Physical Exam General: Alert, Oriented X3, Cooperative, No acute distress Heart: Regular rate, Normal S1, Normal S2 Lungs: Clear Abdomen: Normal bowel sounds, Soft, No tenderness, No masses Extremities: No clubbing, No cyanosis, Other (palpable right lower extremity dorsalis pedis pulse, bilateral femoral pulses are intact ) Skin: No rashes, Other (mal perforans ulcer which probes to the metatarsal bone in the right foot involving the first metatarsal, positive cellulitis extending from this point to the dorsum of the foot, no evidence of crepitance, no evidence of purulent drainage no malodor) Labs Labs: Laboratory Tests Test 09/06/19 15:45 09/07/19 00:00 White Blood Count 13.0 x10^3/uL (4.0-11.0) Red Blood Count 4.21 x10^6/uL (4.30-5.70) Hemoglobin 13.0 g/dL (13.0-17.5) Hematocrit 38.0 % (39.0-53.0) Mean Corpuscular Volume 90 fL (79-100) Mean Corpuscular Hemoglobin 31 pg (25-35) Mean Corpuscular Hemoglobin Concent 34 g/dL (31-37) Red Cell Distribution Width 13.6 % (11.5-14.5) Platelet Count 275 x10^3/uL (140-400) Neutrophils (%) (Auto) 76 % (31-73) Lymphocytes (%) (Auto) 12 % (24-48) Monocytes (%) (Auto) 11 % (0-9) Eosinophils (%) (Auto) 1 % (0-3) Basophils (%) (Auto) 1 % (0-3) Neutrophils # (Auto) 9.9 x10^3/uL (1.8-7.7) Lymphocytes # (Auto) 1.6 x10^3/uL (1.0-4.8) Monocytes # (Auto) 1.4 x10^3/uL (0.0-1.1) Eosinophils # (Auto) 0.1 x10^3/uL (0.0-0.7) Basophils # (Auto) 0.1 x10^3/uL (0.0-0.2) Erythrocyte Sedimentation Rate 62 (0-15) Sodium Level 133 mmol/L (136-145) Potassium Level 3.6 mmol/L (3.5-5.1) Chloride Level 96 mmol/L (98-107) Carbon Dioxide Level 27 mmol/L (21-32) Anion Gap 10 (6-14) Blood Urea Nitrogen 9 mg/dL (8-26) Creatinine 0.8 mg/dL (0.7-1.3) Estimated GFR (Cockcroft-Gault) 95.6 Glucose Level 137 mg/dL (70-99) Calcium Level 10.1 mg/dL (8.5-10.1) Lactic Acid Level 0.9 mmol/L (0.4-2.0) Review of Systems Review of Systems: No CP, SOB Assessment and Plan Assessmemt and Plan Assessment Diabetic foot ulcer Diabetes Hypertension Hyperlipidemia Diabetic foot disease Plan MRI shows osteomyelitis of the right foot, vascular recommending amputation, pt considering ID following and managing abx HM DVT prophylaxis PT/OT Labs Full code Comment Review of Relevant I have reviewed the following items kalin (where applicable) has been applied. Medications: Current Medications Medications (Trade) Dose Ordered Sig/Juan Carlos Route PRN Reason Start Time Stop Time Status Last Admin Dose Admin Lisinopril (Prinivil) 5 mg DAILY PO 09/06/19 14:00 09/07/19 08:31 Metformin HCl (Glucophage Xr) 1,000 mg DAILYWBKFT PO 09/07/19 08:00 09/07/19 08:32 Metformin HCl (Glucophage Xr) 500 mg DAILY16 PO 09/06/19 16:00 09/06/19 16:43 Piperacillin Sod/ Tazobactam Sod 4.5 gm/Sodium Chloride 100 ml @ 200 mls/hr ONCE ONCE IV 09/06/19 15:15 09/06/19 15:44 DC 09/06/19 16:10 Vancomycin HCl 2 gm/Sodium Chloride 500 ml @ 250 mls/hr ONCE ONCE IV 09/06/19 15:45 09/06/19 17:44 DC 09/06/19 17:15 Vancomycin HCl (Vanco Per Pharmacy) 1 each PRN DAILY PRN MC SEE COMMENTS 09/06/19 15:15 09/07/19 09:42 Acetaminophen (Tylenol) 650 mg PRN Q6HRS PRN PO pain 09/06/19 15:45 09/07/19 05:39 Aspirin (Ecotrin) 81 mg DAILY16 PO 09/06/19 16:30 09/06/19 16:43 Ascorbic Acid (Vitamin C) 500 mg DAILY PO 09/07/19 09:00 09/07/19 08:31 Multivitamins (Thera M Plus) 1 tab DAILY PO 09/07/19 09:00 09/07/19 08:31 Vancomycin HCl 1.25 gm/Sodium Chloride 250 ml @ 167 mls/hr Q12H IV 09/07/19 05:00 09/07/19 05:39 Piperacillin Sod/ Tazobactam Sod 3.375 gm/Sodium Chloride 50 ml @ 100 mls/hr Q6H IV 09/06/19 22:00 09/07/19 10:29 Gadoterate Meglumine (Dotarem) 16 ml 1X ONCE IVP 09/07/19 10:00 09/07/19 10:01 DC 09/07/19 10:02 UZMA MCKEON III DO Sep 07, 2019 12:58
--- NOTE | 2019-09-07 13:06 | PDOC ---
Infectious Disease Note Vital Sign Vital Signs Vital Signs Date Time Temp Pulse Resp B/P (MAP) Pulse Ox O2 Delivery O2 Flow Rate FiO2 09/07/19 11:00 98.4 95 20 153/74 (100) 97 Room Air 98.4 Labs Lab Laboratory Tests Test 09/06/19 15:45 09/07/19 00:00 White Blood Count 13.0 x10^3/uL (4.0-11.0) Red Blood Count 4.21 x10^6/uL (4.30-5.70) Hemoglobin 13.0 g/dL (13.0-17.5) Hematocrit 38.0 % (39.0-53.0) Mean Corpuscular Volume 90 fL (79-100) Mean Corpuscular Hemoglobin 31 pg (25-35) Mean Corpuscular Hemoglobin Concent 34 g/dL (31-37) Red Cell Distribution Width 13.6 % (11.5-14.5) Platelet Count 275 x10^3/uL (140-400) Neutrophils (%) (Auto) 76 % (31-73) Lymphocytes (%) (Auto) 12 % (24-48) Monocytes (%) (Auto) 11 % (0-9) Eosinophils (%) (Auto) 1 % (0-3) Basophils (%) (Auto) 1 % (0-3) Neutrophils # (Auto) 9.9 x10^3/uL (1.8-7.7) Lymphocytes # (Auto) 1.6 x10^3/uL (1.0-4.8) Monocytes # (Auto) 1.4 x10^3/uL (0.0-1.1) Eosinophils # (Auto) 0.1 x10^3/uL (0.0-0.7) Basophils # (Auto) 0.1 x10^3/uL (0.0-0.2) Erythrocyte Sedimentation Rate 62 (0-15) Sodium Level 133 mmol/L (136-145) Potassium Level 3.6 mmol/L (3.5-5.1) Chloride Level 96 mmol/L (98-107) Carbon Dioxide Level 27 mmol/L (21-32) Anion Gap 10 (6-14) Blood Urea Nitrogen 9 mg/dL (8-26) Creatinine 0.8 mg/dL (0.7-1.3) Estimated GFR (Cockcroft-Gault) 95.6 Glucose Level 137 mg/dL (70-99) Calcium Level 10.1 mg/dL (8.5-10.1) Lactic Acid Level 0.9 mmol/L (0.4-2.0) Micro IMPRESSION: 1. Findings consistent with osteomyelitis distal first metatarsal with cortical disruption. Small ulcer identified medial to the first metatarsal head with a 2 cm focal fluid collection probably abscess lateral to the first MTP joint. 2. Diffuse increased T2 signal with enhancement identified in the soft tissue in the medial forefoot likely soft tissue infection. There is increased T2 signal with enhancement identified in the midportion of the first metatarsal identified in the bone marrow reactive changes. 3. Diffuse increased T2 signal identified throughout the forefoot likely edema. Objective Assessment R foot ulcer with cellulitis Right foot osteomyelitis Leukocytosis Tinea H/o PAD s/p angioplasty June Plan Plan of Care I added Vanc and Zosyn 09/06 Add Fluconazole F/u labs and cults Await surgical decision - likely needs amputation D/w nursing Thank you # [id number] ALHAJI SPENCER MD Sep 07, 2019 13:06
[2019-09-07 15:00] VITALS: BP 124/59
--- NOTE | 2019-09-07 15:56 | CONS ---
DATE OF CONSULTATION: 09/07/2019 LOCATION: The patient's room is 444. REQUESTING PHYSICIAN: Dr. Wyman. REASON FOR CONSULTATION: Right foot osteomyelitis. HISTORY OF PRESENT ILLNESS: The patient is a 68-year-old gentleman with history of diabetes, who developed an ulcer on his left great toe area approximately 5 months ago. In June of this year, he underwent a left lower extremity angioplasty by Dr. Stevens on 07/04. [facility] and had been using a soft cast. There was a period of about roughly 10 days or so that he went without the cast. He states he had to get his [place] driver's license and he did not want to wear the boot around. This past Thursday on the , he went back to wound care and had a soft cast applied again; however, on the , he followed up in Wound Care where he states the soft cast was removed and appeared to have some exposed bone, drainage, swelling, redness and warmth. He states he several days ago was having migraines, fever, chills, sweats and upper respiratory type symptoms. He has not been on any antimicrobials recently. He was admitted to the hospital on . I instituted vancomycin and Zosyn. Cultures were acquired from the wound. He has been evaluated by Vascular Surgery who is recommending amputation. Initially, he has refused this and awaiting for MRI, which was performed today shows findings consistent with osteomyelitis of the distal first metatarsal with a cortical disruption, small ulcer identified medial to the first metatarsal head with a 2 cm focal fluid collection, probably abscess lateral to the first MTP joint and some diffuse increased signal with enhancement of the soft tissue of the medial forefoot, likely soft tissue infection. Currently, he is sitting in a chair. He denies any gross headaches. No cough or shortness of air. No dysuria, frequency, or urgency. PAST MEDICAL HISTORY: Positive for diabetes, hypertension, hyperlipidemia, foot wound, and right lower extremity peripheral arterial disease. PAST SURGICAL HISTORY: Positive for the above-mentioned angioplasty. He has the right angioplasty. REVIEW OF SYSTEMS: Otherwise negative. ALLERGIES: No known drug allergies. 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 He is . No tobacco or alcohol. FAMILY HISTORY: Noncontributory as he was adopted. CURRENT MEDICATIONS: Include vancomycin and Zosyn, which were instituted yesterday. He has enteric-coated aspirin, Prinivil, metformin. Other meds are available and reviewed in the chart. PHYSICAL EXAMINATION: VITAL SIGNS: He is afebrile, temperature 98.4, pulse 95, respirations 20, blood pressure 153/74, satting 97% on room air. CONSTITUTIONAL: He is cooperative. He is in no acute distress. He is sitting in a chair. He appears comfortable. Normal conjunctivae. Oral cavity, pharynx is clear. NECK: Supple, no JVD. LUNGS: Clear to auscultation bilaterally. HEART: S1, S2. ABDOMEN: Soft, nontender, no guarding or rebound. EXTREMITIES: No clubbing or cyanosis. His right lower extremity has an ulcer over the first metatarsal bone. There is an area of erythema and cellulitis about it as well. He does have some mild drainage from it. He has bilateral tinea on his feet as well. He has good pulses. NEUROLOGIC: He is nonfocal. PSYCHIATRIC: Affect is appropriate. LABORATORY DATA: White count was 13 on arrival, hemoglobin 13, platelets of 275, neutrophils 76, lymphs are 12, sed rate of 62, creatinine 0.8, glucose of 137. Radiology reviewed in history of present illness. IMPRESSION: 1. Right foot ulcer with cellulitis. 2. Right foot osteomyelitis. 3. Leukocytosis. 4. Tinea. 5. History of peripheral arterial disease, status post angioplasty, June. RECOMMENDATIONS: Again, I added vancomycin and Zosyn per pharmacy on 09/06. We will add fluconazole given his Tinea. We will follow up labs, cultures, await surgical decision. Likely needs amputation. This was discussed with nursing. Thank you for allowing me to see and participate in the patient's care. Should you have any further questions, please do not hesitate to contact me. ALHAJI SPENCER MD DR: KRISHNA/jory JOB#: [id number] / [id number]
[2019-09-07] MEDS: ASPIRIN ENTERIC COATED 81 MG TABLET.DR. PO SCH (16:17)
[2019-09-07] MEDS: LACTOBACILLUS RHAMNOSUS GG 1 CAPSULE. PO SCH ×2 (16:17→21:25)
[2019-09-07] MEDS: FLUCONAZOLE 100 MG TABLET. PO SCH (16:18)
[2019-09-07 19:20] VITALS: BP 125/63
[2019-09-07 23:22] VITALS: BP 128/62
[2019-09-08] VITALS (7 sets, daily range): BP systolic 125–142; BP diastolic 60–74
[2019-09-08] MEDS: PIPERACILLIN/TAZOBACTAM 3.375 GM in IV NORMAL SALINE 50ML 50 ML IV SCH ×4 (04:19→21:19)
[2019-09-08 04:42] LABS: BASO # 0.1 x10^3/uL (0.0-0.2); BASO % 1 % (0-3); EOS # 0.2 x10^3/uL (0.0-0.7); EOS % 2 % (0-3); HEMATOCRIT 34.5 % (39.0-53.0); HEMOGLOBIN 11.5 g/dL (13.0-17.5); LYMPH # 1.4 x10^3/uL (1.0-4.8); LYMPH % 15 % (24-48); MEAN CORPUSCULAR HEMOGLOBIN 30 pg (25-35); MEAN CORPUSCULAR HGB CONC 33 g/dL (31-37); MEAN CORPUSCULAR VOLUME 91 fL (79-100); MONO % 11 % (0-9); NEUT # 6.8 x10^3/uL (1.8-7.7); NEUT % 72 % (31-73); PLATELET COUNT 255 x10^3/uL (140-400); RED BLOOD COUNT 3.81 x10^6/uL (4.30-5.70); RED CELL DISTRIBUTION WIDTH 13.4 % (11.5-14.5); WHITE BLOOD COUNT 9.5 x10^3/uL (4.0-11.0)
[2019-09-08 04:45] LABS: ANION GAP 9 (6-14); BLOOD UREA NITROGEN 9 mg/dL (8-26); CALCIUM 9.5 mg/dL (8.5-10.1); CARBON DIOXIDE 26 mmol/L (21-32); CHLORIDE 102 mmol/L (98-107); CREATININE 0.7 mg/dL (0.7-1.3); GFR 111.5; GLUCOSE 130 mg/dL (70-99); POTASSIUM 3.7 mmol/L (3.5-5.1); SODIUM 137 mmol/L (136-145); VANC TR 12.7 mcg/mL (10.0-20.0)
[2019-09-08] MEDS: VANCOMYCIN 1.25 GM in IV NORMAL SALINE 250ML 250 ML IV SCH ×3 (06:03→22:00)
[2019-09-08] MEDS: VANCOMYCIN PER PHARMACY MC PRN (06:40)
--- NOTE | 2019-09-08 06:42 | NUR ---
Pharmacy Vancomycin Dosing Note S: Consulted to monitor and dose vancomycin started 09/06/19. O: BETTE CARR is a 68 year old M with Osteomyelitis, . Other Antibiotics: ZOSYN 3.375GM IV Q6H LABS: Last BUN: 9 Last Creatinine: 0.8 Creatinine Clearance: 68 mL/min Last WBC: 13 Last Procalcitonin: Tmax (past 24 hours): 98.5 Microbiology: I/O: 2380/ 4 VOIDS Drug Levels: Last Trough level: 12.7 on 09/08/19 at 0430 Last dose given 09/07/19 at 1718 Vancomycin Dosing: Dosing Weight: Actual Target Trough: 15-20 A: Based on: Trough, Update Actual Wt and CrCl P: 1. 09/08/19 0600 Increase Vancomycin 1250 mg IV q8h 2. Follow up Trough level on 09/09/19 at 0530 3. Pharmacy will continue to monitor, follow and adjust therapy as needed. LUCHO FLORES RPH, 09/08/19 0642 Signed: 09/08/19 at 0644 by LUCHO FLORES RPH PHA
[2019-09-08] MEDS ORDERED: HYDROmorphone 2 MG/ML VIAL IV PRN (07:00)
[2019-09-08] MEDS ORDERED: MORPHINE SULFATE 2 MG/ML VIAL. IV PRN (07:00)
[2019-09-08] MEDS ORDERED: IV RINGERS,LACTATED 1000ML 1,000 ML IV SCH (07:00)
[2019-09-08] MEDS ORDERED: PROCHLORPERAZINE 10 MG/2 ML VIAL. IV PRN (07:00)
[2019-09-08] MEDS ORDERED: LIDOCAINE 1% PF 2 ML VIAL. ID PRN (07:00)
[2019-09-08] MEDS ORDERED: BACITRACIN 50,000 UNIT in IV NORMAL SALINE 500ML BAG 500 ML IRR ONE (10:00)
[2019-09-08] MEDS ORDERED: BACITRACIN 50,000 UNIT VIAL. IRR ONE (10:13)
[2019-09-08] MEDS ORDERED: PROPOFOL 20 ML IV ONE (10:14)
[2019-09-08] MEDS ORDERED: 0.9 % SODIUM CHLORIDE 20 ML VIAL. IJ ONE (10:14)
[2019-09-08] MEDS ORDERED: LIDOCAINE 2% PF 5 ML VIAL. ONE (10:15)
--- NOTE | 2019-09-08 10:15 | PDOC ---
Infectious Disease Note Subjective Subjective Unable to see as in Surgery Vital Sign Vital Signs Vital Signs Date Time Temp Pulse Resp B/P (MAP) Pulse Ox O2 Delivery O2 Flow Rate FiO2 09/08/19 07:00 98.2 96 16 138/74 (95) 97 Room Air 98.2 Physical Exam PHYSICAL EXAM CONSTITUTIONAL: He is cooperative. He is in no acute distress. He is sitting in a chair. He appears comfortable. Normal conjunctivae. Oral cavity, pharynx is clear. NECK: Supple, no JVD. LUNGS: Clear to auscultation bilaterally. HEART: S1, S2. ABDOMEN: Soft, nontender, no guarding or rebound. EXTREMITIES: No clubbing or cyanosis. His right lower extremity has an ulcer over the first metatarsal bone. There is an area of erythema and cellulitis about it as well. He does have some mild drainage from it. He has bilateral tinea on his feet as well. He has good pulses. NEUROLOGIC: He is nonfocal. PSYCHIATRIC: Affect is appropriate Labs Lab Laboratory Tests Test 09/08/19 04:15 White Blood Count 9.5 x10^3/uL (4.0-11.0) Red Blood Count 3.81 x10^6/uL (4.30-5.70) Hemoglobin 11.5 g/dL (13.0-17.5) Hematocrit 34.5 % (39.0-53.0) Mean Corpuscular Volume 91 fL (79-100) Mean Corpuscular Hemoglobin 30 pg (25-35) Mean Corpuscular Hemoglobin Concent 33 g/dL (31-37) Red Cell Distribution Width 13.4 % (11.5-14.5) Platelet Count 255 x10^3/uL (140-400) Neutrophils (%) (Auto) 72 % (31-73) Lymphocytes (%) (Auto) 15 % (24-48) Monocytes (%) (Auto) 11 % (0-9) Eosinophils (%) (Auto) 2 % (0-3) Basophils (%) (Auto) 1 % (0-3) Neutrophils # (Auto) 6.8 x10^3/uL (1.8-7.7) Lymphocytes # (Auto) 1.4 x10^3/uL (1.0-4.8) Monocytes # (Auto) 1.0 x10^3/uL (0.0-1.1) Eosinophils # (Auto) 0.2 x10^3/uL (0.0-0.7) Basophils # (Auto) 0.1 x10^3/uL (0.0-0.2) Sodium Level 137 mmol/L (136-145) Potassium Level 3.7 mmol/L (3.5-5.1) Chloride Level 102 mmol/L (98-107) Carbon Dioxide Level 26 mmol/L (21-32) Anion Gap 9 (6-14) Blood Urea Nitrogen 9 mg/dL (8-26) Creatinine 0.7 mg/dL (0.7-1.3) Estimated GFR (Cockcroft-Gault) 111.5 Glucose Level 130 mg/dL (70-99) Calcium Level 9.5 mg/dL (8.5-10.1) Vancomycin Level Trough 12.7 mcg/mL (10.0-20.0) Vancomycin Last Dose Date Vancomycin Last Dose Time Micro IMPRESSION: 1. Findings consistent with osteomyelitis distal first metatarsal with cortical disruption. Small ulcer identified medial to the first metatarsal head with a 2 cm focal fluid collection probably abscess lateral to the first MTP joint. 2. Diffuse increased T2 signal with enhancement identified in the soft tissue in the medial forefoot likely soft tissue infection. There is increased T2 signal with enhancement identified in the midportion of the first metatarsal identified in the bone marrow reactive changes. 3. Diffuse increased T2 signal identified throughout the forefoot likely edema. Objective Assessment R foot ulcer with cellulitis Right foot osteomyelitis Leukocytosis - better Tinea H/o PAD s/p angioplasty June Plan Plan of Care Unable to see sec to in surgery Cont Vanc and Zosyn 09/06, Fluconazole 09/07 F/u labs and cults D/w nursing ALHAJI SPENCER MD Sep 08, 2019 10:15
[2019-09-08] MEDS ORDERED: ONDANSETRON PF 4 MG/2 ML VIAL. ONE (10:16)
[2019-09-08] MEDS ORDERED: FAMOTIDINE 20 MG/2 ML VIAL ONE (10:16)
[2019-09-08] MEDS ORDERED: KETOROLAC 30 MG/ML VIAL. ONE (10:17)
[2019-09-08] MEDS ORDERED: DEXAMETHASONE SOD PHOS 4 MG/ML VIAL ONE (10:17)
[2019-09-08] MEDS ORDERED: MIDAZOLAM HCL/PF 2 MG/2 ML VIAL. ONE (10:17)
[2019-09-08] MEDS ORDERED: KETAMINE HCL IN NACL, ISO-OSM 50 MG/5 ML SYRINGE ONE (10:18)
[2019-09-08] MEDS ORDERED: HYDROcodone/APAP 5/325MG 1 TAB TABLET PO PRN (11:00)
[2019-09-08] MEDS ORDERED: ePHEDrine PF IN SALINE 50 MG/10 ML SYRINGE. IV ONE ×2 (11:04→11:23)
[2019-09-08] MEDS ORDERED: DESFLURANE 31 TO 60 MINUTES IH ONE (11:23)
--- NOTE | 2019-09-08 11:24 | NUR ---
SW following. Discussed with RN, pt is from home with . Pt having surgery today. SW will continue to follow for discharge planning needs.
--- NOTE | 2019-09-08 11:34 | PDOC ---
BRIEF OPERATIVE NOTE Date: Sep 08, 2019 Pre-Op Diagnosis Osteomyelitis right 1st toe Post-Op Diagnosis Same Procedure Performed Right 1st toe amputation with metatarsal head Surgeon Giovanna King DO, FACS Anesthesia Type: General Blood Loss 30 mL Specimens Obtained Right 1st toe Complications None GIOVANNA KING DO Sep 08, 2019 11:34
--- NOTE | 2019-09-08 12:08 | OP ---
DATE OF SURGERY: 09/08/2019 PREOPERATIVE DIAGNOSIS: Osteomyelitis of the right first toe. POSTOPERATIVE DIAGNOSIS: Osteomyelitis of the right first toe. PROCEDURE: Right first toe amputation with the metatarsal head. ANESTHESIA: General. SPECIMENS: Right first toe and the metatarsal. ESTIMATED BLOOD LOSS: 30 mL. COMPLICATIONS: None. PREOPERATIVE INDICATIONS: The patient is a very pleasant diabetic male who has had a nonhealing toe ulcer for approximately 6 months. He was found to have osteomyelitis of this toe with active infection. I recommended first toe amputation. The patient was agreeable to proceed and consented for the procedure. He understood all risks, benefits, and alternatives prior to proceeding. OPERATIVE PROCEDURE: The patient was brought to the operating suite and placed in the supine position. After establishing appropriate general anesthesia, the patient was prepped and draped in sterile fashion. Next, a timeout procedure was performed. It was confirmed that the correct operative site was marked and draped and we had all the appropriate instruments available within the room and the patient did receive appropriate perioperative antibiotics. Following this, a first toe ray amputation incision was made, carried through skin and subcutaneous tissue. Dissection was carried circumferentially around the toe and the toe was disarticulated from the metatarsal head. Next, sharp dissection surrounding the metatarsal bone was performed circumferentially in preparation for division of the bone. Following this, a micro oral pneumatic saw was used to divide the metatarsal shaft and then the metatarsal was handed off the field. Next, the sesamoid bones were sharply excised using a 10 blade scalpel. Following this, all tendinous material was also sharply excised using a 10 blade scalpel. Next, hemostasis was obtained using Bovie electrocautery. Following this, the wound was copiously irrigated with antibiotic-impregnated solution for a total of 3 liters using a pulse lavage device. I felt that the wound was clean enough to close and therefore, the wound was closed using 3-0 nylon suture followed by sterile dressings followed by compressive wrap. The patient tolerated the procedure well and was transferred to the postanesthesia care unit in stable condition. GIOVANNA KING DO DR: NATHANIEL/jory JOB#: [id number] / [id number]
[2019-09-08] MEDS: MULTIVITAMIN with MINERAL TABLET. PO SCH (12:18)
[2019-09-08] MEDS: LACTOBACILLUS RHAMNOSUS GG 1 CAPSULE. PO SCH ×2 (12:18→21:19)
[2019-09-08] MEDS: ASCORBIC ACID 500 MG TABLET PO SCH (12:18)
[2019-09-08] MEDS: FLUCONAZOLE 100 MG TABLET. PO SCH (12:19)
[2019-09-08] MEDS: LISINOPRIL 5 MG TABLET. PO SCH (12:19)
[2019-09-08] MEDS: metFORMIN XR 500 MG TAB.ER.24H PO SCH ×2 (12:19→16:00)
[2019-09-08] MEDS: ASPIRIN ENTERIC COATED 81 MG TABLET.DR. PO SCH (16:35)
[2019-09-09 03:54] VITALS: BP 121/61
[2019-09-09] MEDS: PIPERACILLIN/TAZOBACTAM 3.375 GM in IV NORMAL SALINE 50ML 50 ML IV SCH ×2 (04:24→11:15)
--- NOTE | 2019-09-09 05:14 | NUR ---
Medication Administration: [facility] downtime look at paper chart
[2019-09-09 06:16] LABS: VANC TR 19.3 mcg/mL (10.0-20.0)
[2019-09-09] MEDS: VANCOMYCIN 1.25 GM in IV NORMAL SALINE 250ML 250 ML IV SCH (06:41)
[2019-09-09 07:00] VITALS: BP 138/71
[2019-09-09] MEDS: VANCOMYCIN PER PHARMACY MC PRN (07:02)
--- NOTE | 2019-09-09 07:02 | NUR ---
Pharmacy Vancomycin Dosing Note S:Consulted to monitor and dose vancomycin started 09/06/19. O:BETTE CARR is a 68 year old M with Osteomyelitis . Height: 5 feet, 6 inches Weight: 80.583518 kg Crescent Body Weight: 63.80 Adjusted Body Weight: 70.44 Dosing Weight: Actual Other Antibiotics: ZOSYN 3.375GM IV Q6H LABS: Last BUN: 9 Last Creatinine: 0.8 Creatinine Clearance: 68 mL/min Last WBC: 13 Last Procalcitonin: Tmax (past 24 hours): 98.5 Microbiology: I/O: 2380/ 4 VOIDS Drug Levels: Last Trough level: 19.3 on 09/09/19 at 0530 Last dose given 09/07/19 at 1718 Vancomycin Dosing: Loading Dose: 2000 mg x1 Dosing Weight: Actual Target Trough: 15-20 A: Based on: TROUGH P: 1. Continue Vancomycin 1250 mg IV q8h 2. Follow up Trough level on 09/09/19 at 0530 3. Pharmacy will continue to monitor, follow and adjust therapy as needed. STEVEN BAKER RPH, 09/09/19 07 Signed: 09/09/19 at 0703 by STEVEN BAKER RPH PHA
[2019-09-09] MEDS: metFORMIN XR 500 MG TAB.ER.24H PO SCH ×2 (07:27→07:30)
[2019-09-09] MEDS: MULTIVITAMIN with MINERAL TABLET. PO SCH (08:37)
[2019-09-09] MEDS: ASCORBIC ACID 500 MG TABLET PO SCH (08:37)
[2019-09-09] MEDS: LISINOPRIL 5 MG TABLET. PO SCH (08:37)
[2019-09-09] MEDS: FLUCONAZOLE 100 MG TABLET. PO SCH (08:38)
[2019-09-09] MEDS: LACTOBACILLUS RHAMNOSUS GG 1 CAPSULE. PO SCH (08:38)
--- NOTE | 2019-09-09 08:38 | PDOC ---
Provider Note Provider Note S: Pt seen and examined in room this morning. Reports no pain. Has been walking with post op shoe. Good appetite, no complaints. O: VSS, slightly tachycardic Awake, alert, in no apparent distress Respirations non-labored Right foot dressing removed, mildly saturated with blood. Incision clean, dry and intact. Wound edges approximate well. Mild surrounding erythema. No active drainage. Palpable pedal pulses A/P: Osteomyelitis right 1st toe H/o PAD s/p angioplasty June POD#1 of right 1st toe ray amputation, closed - Pt doing well, has no pain. Palpable pedal pulses. - Needs to remain forefoot offloading x 7 days - Elevate rt foot when not ambulating - Cont abx per ID Ok for discharge from vascular surgery standpoint once medically stable, he will follow up with Dr. Allen on 10/03 at 0920. Post op care instructions discussed with pt verbally. All his questions were answered to satisfaction. BRODY NAILS Sep 09, 2019 08:38
[2019-09-09 11:00] VITALS: BP 131/65
--- NOTE | 2019-09-09 11:27 | SNU/HH DC ---
DISCHARGE WITH HOME HEALTH DISCHARGE INFORMATION: Condition on Discharge: Stable CODE STATUS: Code Status: Full HOME HEALTH: Face to Face: I certify this patient is under my care and that I, or a nurse practitioner or physician's blood bank assistant working with me, had a face to face encounter that meets the physician face to face encounter requirements with this patient on []. Medical Complications: Other (recent toe amputation) RN For Eval/Treatment: Yes Physical Therapy For: Evalulation/Treatment Speech Language Pathology For: Evaluation/Treatment Home Health Aide For: Self-care BAND SAWMILL OPERATOR For: Community Resources Pt Meets Homebound Status: Unsteady balance w/ amb, POST DISCHARGE ORDERS: Activity Instructions for Disc: Other, see below Weight Bearing Status after Di: Other, see below DIET AFTER DISCHARGE: ADA CHECKS AFTER DISCHARGE: Checks after discharge: Check blood press - daily, Check blood sugar, ac/hs TREATMENT/EQUIPMENT ORDERS: Adaptive Equipment Issued: None CERTIFICATION STATEMENT: Certification Statement: Certification Statement: Based on the above finding, I certify that this patient is confined to the home and needs intermittent [facility] care, physical therapy and/or speech therapy, or continues to need occupational therapy.~ This patient is under my care, and I have initiated the establishment of the plan of care.~ This patient will be followed by myself or a community physician who will periodically review the plan of care. Home Meds Active Scripts Aspirin (ASPIRIN EC) 81 Mg Tablet.dr, 1 TAB PO DAILY for PAD for 30 Days, #30 TAB 3 Refills Prov:ASHLEIGH ORTEGA DIGITAL ADVERTISING ANALYST 07/05/19 Ticagrelor (BRILINTA) 90 Mg Tablet, 90 MG PO BID for PAD for 30 Days, #60 TAB Prov:ASHLEIGH ORTEGA DIGITAL ADVERTISING ANALYST 07/05/19 Rivaroxaban (XARELTO) 10 Mg Tablet, 2.5 MG PO DAILYWSUP for PAD for 30 Days, #8 TAB Prov:ASHLEIGH ORTEGA DIGITAL ADVERTISING ANALYST 07/05/19 Reported Medications [tamikayle esequiel] No Conflict Check, 1 EA TOP BID 07/04/19 Doxycycline Monohydrate (DOXYCYCLINE MONOHYDRATE) 100 Mg Capsule, 1 CAP PO BID for rx, #28 CAP 07/04/19 Atorvastatin Calcium (LIPITOR) 20 Mg Tablet, 20 MG PO HS for FOR CHOLESTEROL, #30 TAB 0 Refills 07/04/19 Lisinopril (LISINOPRIL) 5 Mg Tablet, 1 TAB PO DAILY for rx, #30 TAB 5 Refills 07/04/19 Metformin Hcl (METFORMIN HCL ER) 500 Mg Tab.er.24h, 500 MG PO DAILY16 for rx, TAB patient states he takes one tab in the evening 07/04/19 Metformin Hcl (METFORMIN HCL ER) 500 Mg Tab.er.24h, 1000 MG PO DAILYWBKFT for ANTI-DIABETIC, TAB 0 Refills patient states he takes two pills in the morning 07/04/19 UZMA MCKEON III DO Sep 09, 2019 11:27
[2019-09-09] MEDS ORDERED: DOXYCYCLINE HYCLATE 100 MG TABLET PO SCH (12:30)
[2019-09-09] MEDS ORDERED: AMOXICILLIN/K CLAV 875/125MG TABLET. PO SCH (12:30)
--- NOTE | 2019-09-09 12:31 | PDOC ---
Infectious Disease Note Subjective Subjective Doing well and ready to go home No specific pain No F/C/S/N/v/D/SOA/rash ROS ROS o/w neg Vital Sign Vital Signs Vital Signs Date Time Temp Pulse Resp B/P (MAP) Pulse Ox O2 Delivery O2 Flow Rate FiO2 09/09/19 11:00 97.3 74 18 131/65 (87) 100 Room Air 97.3 09/08/19 11:33 10 Physical Exam PHYSICAL EXAM CONSTITUTIONAL: He is cooperative. He is in no acute distress. He is sitting in a chair. He appears comfortable. Normal conjunctivae. Oral cavity, pharynx is clear. NECK: Supple, no JVD. LUNGS: Clear to auscultation bilaterally. HEART: S1, S2. ABDOMEN: Soft, nontender, no guarding or rebound. EXTREMITIES: No clubbing or cyanosis. His right foot is well dressed and he has a walking shoe He has good pulses. NEUROLOGIC: He is nonfocal. PSYCHIATRIC: Affect is appropriate Labs Lab Laboratory Tests Test 09/09/19 05:30 Vancomycin Level Trough 19.3 mcg/mL (10.0-20.0) Vancomycin Last Dose Date 09/08/19 Vancomycin Last Dose Time 2200 Micro GRAM STAIN Final Final report GRAM STAIN RES 1 Final Comment Few gram negative rods. GRAM STAIN RES 2 Final Comment Many gram positive cocci. GRAM STAIN RES 3 Final Comment No white blood cells seen. IMPRESSION: 1. Findings consistent with osteomyelitis distal first metatarsal with cortical disruption. Small ulcer identified medial to the first metatarsal head with a 2 cm focal fluid collection probably abscess lateral to the first MTP joint. 2. Diffuse increased T2 signal with enhancement identified in the soft tissue in the medial forefoot likely soft tissue infection. There is increased T2 signal with enhancement identified in the midportion of the first metatarsal identified in the bone marrow reactive changes. 3. Diffuse increased T2 signal identified throughout the forefoot likely edema. Objective Assessment R foot ulcer with cellulitis Right foot osteomyelitis s/p closed amputation 09/08 Leukocytosis - better Tinea H/o PAD s/p angioplasty June Plan Plan of Care He can be discharged home on Doxy and Augmentin for 10 days. Explained the empiric nature of the abx and will have to f/u on cults Fluconazole for 7 days F/u ID office 2 weeks [phone] Discont Vanc and Zosyn 09/06, Fluconazole 09/07 F/u labs and cults D/w nursing ALHAJI SPENCER MD Sep 09, 2019 12:31
--- NOTE | 2019-09-09 12:55 | NUR ---
SW following. Discussed with RN. Pt is from home with . PT recommending home. Pt discharging home today with self care, and PO abx. No further SW needs.
--- NOTE | 2019-09-09 23:13 | DS ---
DATE OF DISCHARGE: 09/09/2019 ADMISSION DIAGNOSIS: Right foot diabetic foot lesion. DISCHARGE DIAGNOSIS: Postop first toe amputation. HOSPITAL COURSE: The patient is a pleasant 68-year-old male who presented from the wound care clinic with a right diabetic foot lesion, it was on the first toe. He was admitted. We consulted Orthopedics. We did an MRI, which confirmed osteomyelitis. He was then taken to surgery and underwent a total amputation. This morning, I saw him and examined him. Heart tones were normal. Lungs were clear. His extremities showed no edema. He did have a clean, dry and intact dressing. We plan to discharge to home with close outpatient followup. DISPOSITION: Home. ACTIVITY: As tolerated. DIET: Low sodium. MEDICATIONS: Please see the MRAD. TOTAL TIME: 35 minutes. UZMA MCKEON DO DR: RAIMUNDO/jory JOB#: [id number] / [id number]
--- NOTE | 2019-09-12 16:06 | PATHOLOGY ---
[facility] Accession Number: [id number] . 01 Material submitted: . toe - RIGHT GREAT 1ST TOE AND METATARSAL. Modifiers: great, right, first . 01 Clinical history: . Non-healing diabetic foot ulcer . 02 Diagnosis: Toe and separate segments of bone and soft tissue, right first toe and metatarsal amputation: - Acute osteomyelitis and deep acute cellulitis of proximal right first toe. - Acute osteomyelitis of metatarsal bone and acute cellulitis of attached metatarsal soft tissues. (JPM:harriett; 09/12/2019) QMS 09/12/2019 0953 Local . 02 Electronically signed: . Ty Mallory MD, Pathologist NPI- [id number] . 01 Gross description: . The specimen is received in formalin, labeled "Luciana Damon, right great first toe and metatarsal". Received is an amputated digit measuring 7.3 x 3.5 x 3.2 cm in greatest dimensions. The bone margin is smooth and concave in appearance, consistent with disarticulation. The bone and soft tissue margins are inked black. The nail is present displaying a light moreau and severely thickened to flaky appearance. The epidermal surface is pale moreau and grossly unremarkable with no grossly distinct nodules or lesions. A longitudinal cross-section through the bone margin is submitted in cassette A1, following decalcification. . Also received within the specimen container are three additional segments of bone measuring 2.3 x 1.6 x 1.3, 2.6 x 2.0 x 1.3, and 3.6 x 2.5 x 2.3 cm in greatest dimensions. The smaller segment is covered and overlying soft tissue and displays a slight amount of possible pale moreau, smooth articular surface, which is inked black. The second segment displays a smooth, convex possible articular surface, which is inked black. The larger segment displays one smooth, convex margin consistent with disarticulation, and one blunt margin consistent with transection. The transected margin is inked black. The specimen is submitted representatively as follows: . A2 full-thickness cross-section through smaller segment, following decalcification A3 full-thickness cross-section through second segment, following decalcification A4-A5 full-thickness cross section through larger segment submitted from transected to disarticulated aspects, following decalcification. (CAA; 09/09/2019) QAC/QAC 09/09/2019 0949 Local . 02 Pathologist provided ICD-10: M86.171, L03.031 . 02 CPT . 119085, 996129 Specimen Comment: A courtesy copy of this report has been sent to [phone], [phone] Specimen Comment: [phone], , Specimen Comment: Report sent to , , Specimen Comment: and Performed at: 01 [facility] [address] [address], [place] [id number] MD Justin Cameron MD Phone: [phone] Performed at: 02 [facility] [address] [place], [place] [id number] MD Ty Mallory MD Phone: [phone]
== END 2019-09-09 13:30 | disposition home health service (06) | DRG 617 ==
LOC: 4 NORTH 12:50
PROVIDERS: ADMIT Internal Medicine; ATTEND Internal Medicine
PROC: 0Y6M0Z9 Detachment at Right Foot, Partial 1st Ray, Open Approach (ICD-10-PCS; principal; 2019-09-08 10:30)
DX: E11.69 Type 2 diabetes mellitus with other specified complication (principal); M86.8X8 Other osteomyelitis, other site; E11.51 Type 2 diabetes mellitus with diabetic peripheral angiopathy without gangrene; E11.621 Type 2 diabetes mellitus with foot ulcer; B35.9 Dermatophytosis, unspecified; E78.5 Hyperlipidemia, unspecified; I10 Essential (primary) hypertension; I25.10 Atherosclerotic heart disease of native coronary artery without angina pectoris; L97.519 Non-pressure chronic ulcer of other part of right foot with unspecified severity; M21.611 Bunion of right foot; Z82.49 Family history of ischemic heart disease and other diseases of the circulatory system; Z83.3 Family history of diabetes mellitus; Z98.62 Peripheral vascular angioplasty status; Z79.4 Long term (current) use of insulin
CPT/HCPCS: 36415; 73720; 80048; 80202; 82565; 82962; 83605; 85025; 85651; 87071; 87075; A9575; J0171; J1100; J1885; J2001; J2250; J2405; J2543; J2704; J3370; J3490; J7040; J7050; G0378; J7030

== ENCOUNTER → 2020-07-09 | Outpatient (CLI) | payer OTHER ==
[~2020-07-09] MED LIST changes: -ASPI-612 PO; +ASPI-886 PO; +ATOR10TA60 PO; +METF-658 PO; -METF500T11 PO; +METO50TA4 PO; +REGADENOSON 0.4 MG/5 ML DISP.SYRIN. IV ONE
--- NOTE | 2020-07-09 12:12 | RAD ---
MR#: [id number] Date of Study: 07/09/2020 Ordering Physician: NIKITA MANE, Referring Physician: NIKITA MANE, Tech: Lucy Dalal, RDMS, RVT, RTR APPROVED REPORT Patient Location: OUT-PATIENT Laterality:Bilateral Risk Factors Hypertension: 20Years Smoking Doppler Spectral Velocity Analysis Right Left pCCA 113/17 cm/spCCA 110/23 cm/s mCCA 99/22 cm/smCCA 84/16 cm/s dCCA 98/22 cm/sdCCA 77/19 cm/s Bulb 90/21 cm/sBulb 81/18 cm/s ECA 67/11 cm/sECA 90/14 cm/s pICA 75/21 cm/spICA 90/24 cm/s Andrzej 70/23 cm/smICA 102/30 cm/s dICA 62/18 cm/sdICA 120/38 cm/s Vert. 54/19 cm/sVert. 86/29 cm/s ICA/CCA 0.75ICA/CCA 1.40 Findings Grayscale images of the bilateral carotid vessels demonstrates mild diffuse plaque. No obvious focal obstruction is noted. Based on velocity criteria overall 0 to less than 50% stenosis. Critical Notification Critical Value: No <Conclusion> 1. No significant carotid occlusive disease bilaterally Signed by : Nikita Mane, Electronically Approved : 07/09/2020 12:11:55
--- NOTE | 2020-07-09 12:18 | RAD ---
MR#: [id number] Date of Study: 07/09/2020 Ordering Physician: NIKITA MANE, Referring Physician: NIKITA MANE, Tech: Lucy Dalal RDMS, RVT, RTR APPROVED REPORT Patient Location: OUT-PATIENT Exam Type: Ankle to Brachial Index Indications PAD Right In-Dwelling Proximal SFA Stent Risk Factors History of PAD: Bilaterally Hypertension Smoking Pressures/Indices RightABI LeftABI Brachial 138mmHg.81Brachial 142mmHg.94 Ankle(PT) 116mmHgAnkle(PT) 132mmHg Ankle(DP) 114mmHgAnkle(DP) 134mmHg Findings 1. Mild to moderately abnormal right-sided TRINIDAD, near normal left-sided TRINIDAD Critical Notification Critical Value: No Signed by : Nikita Mane, Electronically Approved : 07/09/2020 12:18:39
--- NOTE | 2020-07-09 12:18 | RAD ---
MR#: [id number] Date of Study: 07/09/2020 Ordering Physician: NIKITA MANE, Referring Physician: NIKITA MANE, Tech: Lucy Dalal, KATHERINE, RVT, RTR APPROVED REPORT Patient Location: OUT-PATIENT Indications PAD Risk Factors History of Lower Extremity PAD: Bilaterally Hypertension Smoking VELOCITY AND DOPPLER WAVEFORM ANALYSIS RIGHT cm/secWaveformSeverity LEFT cm/secWaveform Severity pCFA 109.9pCFA dCFA dCFA 136.7 Prof Fem Art. 426.7Prof Fem Art. Fem Art Prox. 312.4Fem Art Prox. 143.0 Fem Art Mid. 233.0Fem Art Mid. 177.4 Fem Art Dist. 198.3Fem Art Dist. 124.7 Pop Art(AK) 44.3Pop Art(AK) 81.0 AIRCRAFT INSTRUMENT ENGINEER Prox. 31.9PTA Prox. 74.6 AIRCRAFT INSTRUMENT ENGINEER Dist. 53.8PTA Dist. 63.9 Per Art Prox. 62.5Per Art Prox. 94.7 KEELY Prox. 58.4ATA Prox. 58.9 DPA 46DPA 45 Findings Grayscale images of the bilateral lower extremity arterial vessels demonstrates mild to moderate diff use atherosclerosis. On the right side there is a greater than 70% stenosis involving the ostium of the profunda femoris likely secondary to encroachment from a previously placed ostial SFA stent. The re is moderate diffuse disease involving the previously placed proximal SFA stent. No focal high-gra de obstruction is noted in the distal SFA or popliteal artery. There is three-vessel runoff below th e knee but there is monophasic waveforms. On the left side no focal obstruction is evident. There is three-vessel runoff with biphasic wavefor ms. Critical Notification Critical Value: No <Conclusion> 1. Moderate in-stent restenosis involving the right SFA stent. 2. Bilateral three-vessel runoff. Signed by : Nikita Mane, Electronically Approved : 07/09/2020 12:17:59
--- NOTE | 2020-07-09 12:21 | RAD ---
MR#: [id number] Date of Study: 07/09/2020 Ordering Physician: NIKITA MANE, Referring Physician: JAZZ RIVERA Tech: RT Shameka (R) (N) APPROVED REPORT Test Type: Pharmacological Stress Nurse/Tech: Valentina Laura RN Test Indications: cardiomyopathy Cardiac History: HTN, smoker, DM Medications: See Electronic Medical Record Medical History: See Electronic Medical Record Resting ECG: SR Resting Heart Rate: 74 bpm Resting Blood Pressure: 141/71mmHg Pretest Chest Pain: None Nurse/Tech Notes Lungs CTA, S1S2 Consent: The procedure was explained to the patient in lay terms. Informed consent was witnessed. Rui eout was entered into [employer]. History and Stress Test performed by Valentina Laura RN Pharm. Details Pharmacologic stress testing was performed using 0.4mg per 5ml of regadenoson given intravenously ove r 7-10 seconds. Stress Symptoms No chest pain or symptoms. POST EXERCISE Reason for Termination: Infusion complete Max HR: 105 bpm Max Blood Pressure: 134/64mmHg Blood Pressure response to exercise: Normal blood pressure response during stress. Heart Rate response to exercise: normal response Chest Pain: No. Arrhythmia: No. ST Change: No. INTERPRETATION Stress EKG Conclusion: The resting EKG showed a sinus rhythm, left ventricular fascicular block and n onspecific ST-T wave changes. The stress EKG showed no significant changes from baseline. Abnormal baseline EKG but no EKG evidence of stress-induced ischemia. Imaging Protocol IMAGE PROTOCOL: Rest Tc-99m/stress Tc-99m 1 day Rest: Stress: Viability: Radiopharm.Tc99m MtqeqptvnCz54y Sestamibi Npyk96nXy 31.2mCi Duration 15min. 13min. Img Date 07/09/2020 07/09/2020 Inj-Img Itey72gna. 60min. Rest Admin Site:IV - Left ForearmAdministrator:Earlene Rivera RT (R)(N) Stress Admin Site: IV - Left ForearmAdministrator: LAURA Kay, ARRT (R)(N) STRESS DATA End Diast. Vol.207.0mlAv. Heart Rate80.0bpm End Syst. Vol.111.0mlCO Index BSA0.0L/min Myocardial Kthm421.0gEject. Amjoahuh08.0% Stress Rates Pk. Fill Rate2.22EDV/secLVtime Pk. Fill 219.41msec Pk. Empty Rate2.45ESV/secLVtime Pk. Mvzdw624.92msec 1/3 Pk. Fill0.22EDV/sec Stress Scores Regional WT0.00Summed WT11.00 Regional WM0.00Summed WM16.00 LV Perfusion The stress scans showed no significant defects. The rest scans showed no significant defects. Nuclear imaging shows no reversible ischemia or infarct. Wall Motion Left ventricular systolic function is mildly decreased at 47% with mild inferior septal hypokinesis LV Perf. Quant 17 Seg. SSS2.00 17 Seg. SRS1.00 17 Seg. SDS1.00 Stress Defect Extent (% LAD)0.00Rest Defect Extent (% LAD)0.00Rev. Defect Extent (% LAD)0.00 Stress Defect Extent (% LCX) 21.30Rest Defect Extent (% LCX)18.80Rev. Defect Extent (% LCX)0.00 Stress Defect Extent (% RCA)0.00Rest Defect Extent (% RCA)0.00Rev. Defect Extent (% RCA)0.00 Stress Defect Extent (% TATIANA)3.70Rest Defect Extent (% TATIANA)3.30Rev. Defect Extent (% TATIANA)0.00 Conclusion 1. Abnormal baseline EKG but no EKG evidence of stress-induced ischemia. 2. Nuclear imaging shows no reversible ischemia or infarct. 3. Mildly decreased ejection fraction at 47% with mild hypokinesis of the inferior septal region. 4. Moderate risk Lexiscan nuclear stress test. Signed by : Jony Dalton MD Electronically Approved : 07/09/2020 12:20:57
== END | disposition home or self-care (01) ==
LOC: NM 10:55
PROVIDERS: ATTEND Internal Medicine Cardiovascular Disease
DX: I65.23 Occlusion and stenosis of bilateral carotid arteries (principal); I10 Essential (primary) hypertension; F17.210 Nicotine dependence, cigarettes, uncomplicated; Z95.820 Peripheral vascular angioplasty status with implants and grafts
CPT/HCPCS: 78452; 93017; 93880; 93922; 93925; A9500; J2785

== ENCOUNTER → 2020-09-04 | Outpatient (CLI) | payer OTHER ==
[~2020-09-04] MED LIST changes: -REGADENOSON 0.4 MG/5 ML DISP.SYRIN. IV ONE
--- NOTE | 2020-09-04 09:52 | KCIC ---
CT LOW DOSE LUNG SCREENING INDICATION: Lung cancer screening, smoker of 50 yrs., 1pk/day. COMPARISON STUDY: None. TECHNIQUE: Unenhanced axial images were obtained through the lungs and upper abdomen using low dose technique. Coronal and sagittal multiplanar reformatted images were also obtained. PQRS compliance statement: One or more of the following individualized dose reduction techniques were utilized for this examination: 1. Automated exposure control 2. Adjustment of the mA and/or kV according to patient size 3. Use of iterative reconstruction technique FINDINGS: Lung Nodules: There are a couple of tiny indeterminate pulmonary nodules with sales representative uniforms nodule as follows: Middle lobe solid 4 mm nodule (series 7 image 171). Lungs and Airways: No pulmonary mass or consolidation. Bronchial wall thickening. Pleura: Normal pleural spaces. Heart and Mediastinum: The visualized portions of the thyroid gland are normal in size and attenuation. No axillary or supraclavicular lymphadenopathy. No mediastinal, hilar or retrocrural lymphadenopathy. Normal cardiac size. Coronary artery atherosclerotic disease. Atherosclerosis of the thoracic aorta. Abdomen: The visualized abdominal organs demonstrate no abnormality. Bones and Soft Tissues: Degenerative changes of the spine. IMPRESSION: There are a couple of small pulmonary nodules measuring up to 4 mm. Lung-RADS Category: 2 Management Recommendation: Follow up low-dose chest CT in one year. Electronically signed by: Isidro Reese MD (09/04/2020 9:49 AM) [id number]
== END ==
LOC: KCIC CT 08:35
PROVIDERS: ATTEND Family Medicine
DX: Z12.2 Encounter for screening for malignant neoplasm of respiratory organs (principal); R91.8 Other nonspecific abnormal finding of lung field; I25.10 Atherosclerotic heart disease of native coronary artery without angina pectoris; I70.0 Atherosclerosis of aorta; M47.814 Spondylosis without myelopathy or radiculopathy, thoracic region; F17.210 Nicotine dependence, cigarettes, uncomplicated
CPT/HCPCS: G0297

== ENCOUNTER → 2021-11-01 | Outpatient (CLI) | payer OTHER ==
[~2021-11-01] MED LIST changes: +DOXY-181 PO; -DOXY100C14 PO; -LISI-338 PO; +LISI5TAB15 PO
--- NOTE | 2021-11-01 09:15 | KCIC ---
EXAM: CT CHEST WITHOUT CONTRAST (LDCT LUNG CANCER SCREENING). HISTORY: Risk factors for pulmonary malignancy. Tobacco use. TECHNIQUE: CT of the chest was performed without intravenous contrast using a low-dose lung screening protocol. Findings analysis is based on ACR Lung-RADS v1.1. *One or more of the following individual ized dose reduction techniques were utilized for this examination: 1. Automated exposure control. 2. Adjustment of the mA and/or kV according to patient size. 3. Use of iterative reconstruction technique. COMPARISON: 09/04/2020 and 10/21/2016. FINDINGS: The heart is normal in size. There is calcified atherosclerotic plaque involving the carranza ry arteries. The aorta is normal in caliber. There is a stable 1.6 cm nodule posterior to the right t hyroid lobe. There is gynecomastia. There is no pneumothorax or pleural effusion. There is no infiltr ate. There is a stable 4 mm nodule within the medial right middle lobe (series 6, image 176). There i s a stable 3 mm nodule along the anterior right minor pleural fissure, likely a fissural lymph node ( series 6, image 154). No new nodule is seen. There is no acute finding involving the upper abdomen. T here are degenerative changes involving the thoracic spine. There is no acute or suspicious osseous l esion. IMPRESSION: 1. Stable 4 mm right middle lobe pulmonary nodule and 3 mm nodule along the right minor fissure. Lung RADS category 2: Low dose lung cancer screening CT in 12 months is recommended. 2. Stable 1.6 cm nodule posterior to the right thyroid lobe. The 5 year course of stability favors be nign exophytic thyroid parenchyma rather than a true nodule or adjacent lymph node. 3. No acute thoracic finding. Electronically signed by: Earlene Arroyo MD (11/01/2021 9:13 AM) [id number]
== END ==
LOC: KCIC CT 08:30
PROVIDERS: ATTEND Family Medicine
DX: Z12.2 Encounter for screening for malignant neoplasm of respiratory organs (principal); R91.8 Other nonspecific abnormal finding of lung field; I25.10 Atherosclerotic heart disease of native coronary artery without angina pectoris; E04.1 Nontoxic single thyroid nodule; N62 Hypertrophy of breast; M47.814 Spondylosis without myelopathy or radiculopathy, thoracic region; Z72.0 Tobacco use
CPT/HCPCS: 71271